=== PATIENT | female | born 1955 | race Caucasian/White ===

== ENCOUNTER 2017-11-19 06:27 | Inpatient (IN) | payer OTHER ==
--- NOTE | 2017-11-19 06:55 | PDOC ---
History of Present Illness - General Chief Complaint: Shortness of Breath Stated Complaint: SHORTNESS OF BREATH Time Seen by Provider: 11/19/17 06:53 - History of Present Illness Initial Comments: 11/19/17 07:40 The patient is a 62 year old female with a history of anxiety who presents for evaluation of palpitations. The patient notes that she awoke this morning with the sensation of heart palpitations. She notes that she has had similar episodes in the past that she has always attributed to anxiety and usually takes xanax as needed with resolution of her symptoms. However, she states that her symptoms persisted this morning despite xanax prompting her presentation to the ED for further evaluation. She notes that her symptoms have mostly resolved on presentation to the ED and otherwise denies fevers, chills, SOB, chest pain, palpitations, nausea, vomiting, abdominal pain, or changes with urination or bowel movements. Past History - Past Medical History Allergies/Adverse Reactions: Allergies Allergy/AdvReac Type Severity Reaction Status Date / Time Penicillins Allergy Intermediate Swelling Verified 11/19/17 11:25 Home Medications: Ambulatory Orders Alprazolam [Xanax] 0.5 mg PO DAILY 03/01/16 GI Disorders: Yes (acid reflux) Psychiatric Problems: Yes (ANXIETY) - Surgical History Cholecystectomy: Yes - Suicide/Smoking/Psychosocial Hx Smoking Status: No Smoking History: Never smoked Have you smoked in the past 12 months: No Number of Cigarettes Smoked Daily: 0 Information on smoking cessation initiated: No Hx Alcohol Use: No Drug/Substance Use Hx: No Substance Use Type: None Review of Systems - Review of Systems Comments:: 11/19/17 07:44 Constitutional: No fevers, chills, fatigue, malaise HEENT: No Rhinorrhea, nasal congestion, visual changes Cardiovascular: Palpitations. No chest pain, syncope, lightheadedness Respiratory: Cough. No SOB, Hemoptysis, Gastrointestinal: No Abdominal pain, Nausea, Vomiting, Constipation, Diarrhea, Melena Genitourinary: No Dysuria, Frequency, Urgency, Hesitancy, Hematuria, Flank pain Musculoskeletal: No Myalgia, arthralgia Skin: No rashes, itching, bruising, pallor Neurologic: No Headache, Dizziness, Numbness, Weakness, or Tingling Psychiatric: No Hallucinations. No SI or HI *Physical Exam - Vital Signs Last Vital Signs Temp Pulse Resp BP Pulse Ox 98.7 F 63 18 168/94 97 11/19/17 06:41 11/19/17 06:41 11/19/17 06:41 11/19/17 06:41 11/19/17 06:41 - Physical Exam Comments: 11/19/17 07:45 General Appearance: Nourished. No Apparent Distress HEENT: No Pharyngeal Erythema, Tonsillar Exudate, Tonsillar Erythema Neck: No Cervical Lymphadenopathy Respiratory/Chest: Lungs Clear, Normal Breath Sounds. No Crackles, Rales, Rhonchi, Wheezing Cardiovascular: Irregularly Irregular Rhythm, Tachycardic Rate. No Murmur, Gallops, Rubs Gastrointestinal/Abdominal: Normal Bowel Sounds, Soft. No Guarding, Rebound, Tenderness Musculoskeletal: No CVA Tenderness Extremity: Normal Capillary Refill Integumentary: Normal Color, Dry, Warm Neurologic: Fully Oriented, Alert, Normal Mood/Affect, Normal Response, Heart Score/ECG Review #1 ECG reviewed & interpreted by me at: 07:27 (Tachycardic to 127; Irregularly Irregular Rythem; Afib) General ECG Interpretation: Normal Intervals, No acute ischemic changes ED Treatment Course - LABORATORY CBC & Chemistry Diagram: 11/19/17 07:23 11/19/17 07:23 Medical Decision Making - Medical Decision Making 11/19/17 07:46 The patient is a 62 year old female with a history of anxiety who presents for evaluation of palpitations. Differential includes but is not limited to: Arrhythmia, Anxiety, Thyroid Dysfunction, Infectious, Metabolic Derangement. Given the patient's history and physical exam, it appears the patient is in new onset afib per her EKG. We will obtain a cbc, cmp, coags, tsh, troponin, bnp, chest plain film, ua, to evaluate further. We will continue to monitor and reassess while here in the ED. 11/19/17 11:42 CBC, cmp, coags, troponin are unremarkable. TSH is mildly elevated to 3.81. Chest plain film is unremarkable. UA is unremarkable. The patient's heart rate was controlled with 10mg of iv diltiazem and is now in the 90s. We discussed the case with Dr. Bundy with cardiology who recommended an echocardiogram, 30mg PO diltiazem q6h, and heparin drip in the meantime. We discussed the case with the hospitalist team who accepted the patient for admission. *DC/Admit/Observation/Transfer Diagnosis at time of Disposition: Afib Qualifiers: Atrial fibrillation type: unspecified Qualified Code(s): I48.91 - Unspecified atrial fibrillation - Discharge Dispostion Condition at time of disposition: Stable Decision to Admit order: Yes - Referrals - Patient Instructions - Post Discharge Activity
--- NOTE | 2017-11-19 07:10 | PDOC ---
Attending Attestation - Resident Resident Name: Kevin Davison - ED Attending Attestation I have performed the following: I have examined & evaluated the patient, The case was reviewed & discussed with the resident, I agree w/resident's findings & plan, Exceptions are as noted - HPI HPI: 11/19/17 07:09 62y y F hx of anxiety, palpitations presents with complaint of palpitations since this morning. She awoke with palpitations, sob, took her xanax without improvement. Pt notes she tried to cough a few times to break the palpitaitons but was not releived. pt notes she felt this in the past (every few months) but today was more persistent. she denies any fever/chills, sob/da silva, cp, abd pain, diaphoresis, n/v, back pain, neck pain, headache, diarrhea, bpr, melena, lightheadeness. pt notes she has seen cardiology a fe wyears ago for this and had a holter and a echo fred twere normal and they attributed her sx due to anxiety. - Physicial Exam PE: 11/19/17 08:53 GENERAL: The patient is awake, alert, and fully oriented, Nontoxic - in no acute distress. HEAD: Normocephalic, atraumatic. EYES: extraocular movements intact, sclera anicteric, conjunctiva clear. ENT: Normal voice, Moist mucous membranes. NECK: Normal range of motion, supple LUNGS: Breath sounds equal, clear to auscultation bilaterally. No wheezes, no rhonchi, no rales. HEART: tachycardic, irregular ABDOMEN: Soft, nontender, No guarding, no rebound. . No CVA tenderness EXTREMITIES: Normal range of motion, no edema. No clubbing or cyanosis. No cords, erythema, or tenderness. NEUROLOGICAL: No facial assymetry, Normal speech, PSYCH: Normal mood, normal affect. SKIN: Warm, Dry, normal turgor, - Critical Care Time Total Critical Care Time: 40 Critical Care Statement: The care of this patient involved high complexity decision making to prevent further life threatening deterioration of the patient 's condition and/or to evaluate & treat vital organ system(s) failure or risk of failure. - Medical Decision Making 11/19/17 08:54 62-year-old female history of anxiety presenting with intermittent palpitations that any other symptoms. On arrival she is noted be tachycardic slightly irregular, she is consistently atrial fibrillation. 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 Irregularly irregular Rate of 127 Impression: atrial fibrillation with rapid ventricular response
[2017-11-19 07:57] LABS: BASO % 0.8 % (0-2.0); EOS % 5.2 % (0-4.5); HEMATOCRIT 39.7 % (32.4-45.2); HEMOGLOBIN 13.4 GM/dL (10.7-15.3); LYMPH % 40.2 % (8-40); MCHC 33.8 g/dl (32.0-36.0); MEAN CELL VOLUME 88.8 fl (80-96); MEAN PLT VOLUME 8.3 fl (7.5-11.1); MONO % 7.2 % (3.8-10.2); NEUT % 46.6 % (42.8-82.8); PLATELET COUNT 244 K/MM3 (134-434); RBC 4.47 M/mm3 (3.60-5.2); RDW 14.1 % (11.6-15.6); WHITE BLOOD COUNT 6.1 K/mm3 (4.0-10.0)
[2017-11-19] MEDS ORDERED: ALPRAZolam 0.25 MG TABLET PO ONE (08:00)
[2017-11-19] MEDS ORDERED: ALPRAZolam 0.25 MG TABLET ONE ×2 (08:06→20:15)
[2017-11-19 08:10] LABS: INR 0.96 (0.83-1.09); PROTHROMBIN TIME (PATIENT) 10.8 SEC (9.7-13.0)
[2017-11-19] MEDS ORDERED: dilTIAZem HCL 50 MG/10 ML - 10 ML VIAL IVPUSH ONE (08:29)
--- NOTE | 2017-11-19 08:30 | EKG ---
Test Reason : Blood Pressure : / mmHG Vent. Rate : 127 BPM Atrial Rate : 138 BPM P-R Int : 000 ms QRS Dur : 088 ms QT Int : 280 ms P-R-T Axes : 000 041 040 degrees QTc Int : 406 ms ATRIAL FIBRILLATION NONSPECIFIC ST AND T WAVE ABNORMALITY ABNORMAL ECG Confirmed by RENETTA WASHINGTON MD ([id number]) on 11/19/2017 8:30:02 AM Referred By: Confirmed By:RENETTA WASHINGTON MD
[2017-11-19] MEDS ORDERED: dilTIAZem HCL 50 MG/10 ML - 10 ML VIAL ONE (08:31)
[2017-11-19 08:42] LABS: URINE APPEARANCE CLEAR; URINE BILIRUBIN NEGATIVE (<2.0 mg/dL); URINE COLOR COLORLESS; URINE GLUCOSE (UA) NEGATIVE (NEGATIVE); URINE KETONE NEGATIVE (NEGATIVE); URINE LEUK ESTERASE NEGATIVE (NEGATIVE); URINE NITRITE NEGATIVE (NEGATIVE); URINE PROTEIN NEGATIVE (NEGATIVE); URINE UROBILINOGEN NEGATIVE mg/dL (0.2-1.0)
[2017-11-19 08:43] LABS: ALBUMIN 3.4 g/dl (3.4-5.0); ANION GAP 11 (8-16); BLOOD UREA NITROGEN 11 mg/dL (7-18); CALCIUM 9.2 mg/dL (8.5-10.1); CHLORIDE 109 mmol/L (98-107); CO2 25 mmol/L (21-32); GLUCOSE,RANDOM 135 mg/dL (74-106); SODIUM 145 mmol/L (136-145)
[2017-11-19 08:55] LABS: ALK PHOS 109 U/L (45-117); BILIRUBIN,TOTAL 0.3 mg/dL (0.2-1.0); CREATININE 0.8 mg/dL (0.55-1.02); N-TERMINAL BNP 231.08 pg/ml (5-125); SGPT/ALT 25 U/L (12-78); TOT PROT 7.4 g/dl (6.4-8.2)
[2017-11-19 09:15] LABS: POTASSIUM 4.5 mmol/L (3.5-5.1); SGOT/AST 24 U/L (15-37)
[2017-11-19] MEDS ORDERED: dilTIAZem HCL 30 MG TABLET (FP) PO ONE (09:37)
[2017-11-19] MEDS ORDERED: HEPARIN NA (PORCINE) 5,000 UNITS/ML 1ML VIAL IVPUSH PRN ×2 (09:38)
[2017-11-19] MEDS ORDERED: HEPARIN INFUSION - 25,000 UNITS/500 ML INFUS.BAG IVPB ONE (09:49)
[2017-11-19] MEDS ORDERED: dilTIAZem HCL 30 MG TABLET (FP) ONE ×2 (09:49→16:33)
[2017-11-19] MEDS: HEPARIN - 25,000 UNIT in SODIUM CHLORIDE 495 ML IV SCH ×2 (09:58→22:59)
--- NOTE | 2017-11-19 10:36 | HP ---
CHIEF COMPLAINT: SOB PCP: Dr. Gonsalves ENT: Dr. Blood HISTORY OF PRESENT ILLNESS: 62 yr old woman with hx of anxiety, HLD, OA presents with shortness of breath since this morning. She woke up with palpitations, uncontrollable cough leading to SOB around 530AM this morning. She drove herself to the hospital. The palpitations and cough lasted until she came to the hospital. slept well last night, as been in her usual state of health without any complaints until morning. independent in her ADLs, takes care of her grandchildren, is active without any restrictions. denies chest pain, fevers, abdominal pain, diarrhea/constipation, exertional dyspnea, sick contacts had a similar episode of palpitations 2 yrs ago, work-up including echo and outpatient holtor monitor at that time did not reveal any cardiac pathology and she was told the palpitations were due to her anxiety. Last A1c as outpatient in 03/28/2016 was 6.4% no previous diagnosis of HTN, DM. had a recent physical at PCP's office, EKG was NSR. ER course was notable for: (1) heparin drip (2)cardiology consult (3) Recent Travel: none PAST MEDICAL HISTORY: anxiety, HLD, OA, GERD, chronic knee and neck pain PAST SURGICAL HISTORY: cholecystectomy and in 1974 Social History: Smoking: denies Alcohol:denies Drugs: denies Family History: Denies family hx of cancer, HTN, DM, early DE/CVA's, cardiac conditions. Allergies penicilli allergy - says her tongue and face swells, last use in 1970's. Tolerates zithromax for frequent sinus infections HOME MEDICATIONS: Home Medications Medication Instructions Recorded Alprazolam [Xanax] 0.5 mg PO DAILY 03/01/16 REVIEW OF SYSTEMS CONSTITUTIONAL: Present: intentional weight loss in the last 1 month Absent: fever, chills, diaphoresis, generalized weakness, malaise, loss of appetite HEENT: Absent: rhinorrhea, nasal congestion, throat pain, throat swelling, difficulty swallowing, mouth swelling, ear pain, eye pain, visual changes CARDIOVASCULAR: Present: palpitations, irregular heart rate, Absent: chest pain, syncope, lightheadedness, peripheral edema RESPIRATORY: Present: cough, shortness of breath, Absent: dyspnea with exertion, orthopnea, wheezing, stridor, hemoptysis GASTROINTESTINAL: Absent: abdominal pain, abdominal distension, nausea, vomiting, diarrhea, constipation, melena, hematochezia GENITOURINARY: Absent: dysuria, frequency, urgency, hesitancy, hematuria, flank pain MUSCULOSKELETAL: Absent: myalgia, arthralgia, joint swelling, back pain, neck pain SKIN: Absent: rash, itching, pallor HEMATOLOGIC/IMMUNOLOGIC: Absent: easy bleeding, easy bruising, lymphadenopathy, frequent infections ENDOCRINE: Absent: unexplained weight gain, unexplained weight loss, heat intolerance, cold intolerance NEUROLOGIC: Absent: headache, focal weakness or paresthesias, dizziness, unsteady gait, mental status changes, bladder or bowel incontinence PSYCHIATRIC: Present: anxiety, Absent: depression, suicidal or homicidal ideation, hallucinations. PHYSICAL EXAMINATION Vital Signs - 24 hr 11/19/17 11/19/17 06:41 08:35 Temperature 98.7 F Pulse Rate 63 Pulse Rate [ 124 H Left] Respiratory 18 Rate Blood Pressure 168/94 Blood Pressure 150/89 [Right Arm] O2 Sat by Pulse 97 Oximetry (%) GENERAL: Awake, alert, and fully oriented, in no acute distress. HEAD: Normal with no signs of trauma. EYES: Pupils equal, round and reactive to light, extraocular movements intact, sclera anicteric, conjunctiva clear. No lid lag. EARS, NOSE, THROAT: oropharynx clear without exudates. Moist mucous membranes. NECK: Normal range of motion, supple without lymphadenopathy, JVD, or masses. LUNGS: Breath sounds equal, clear to auscultation bilaterally. No wheezes, and no crackles. No accessory muscle use. HEART: irregularily irregular rhythm, normal rate, normal S1 and S2 without murmur, rub or gallop. ABDOMEN: obese, Soft, nontender, not distended, normoactive bowel sounds, no guarding, no rebound, no masses. well healed vertical scar below umbilicus and [id number] vertical scar. MUSCULOSKELETAL: Normal range of motion at all joints. No bony deformities or tenderness. No CVA tenderness. chronic lumbar spinal pain, ttp - skin intact no erythema, no tingling/numbness down leg. UPPER EXTREMITIES: 2+ radial pulses, warm, well-perfused. No cyanosis. No clubbing. No peripheral edema. 5/5 handgrip, biceps/triceps and shoulder extension and flexion. LOWER EXTREMITIES: 2+ pulses, warm, well-perfused. No calf tenderness. 1+ pitting edema from ankle to knee. 5/5 dorsi and plantar flexion, knee and hip extension and flexion. NEUROLOGICAL: Cranial nerves II-XII intact. Normal speech. facial symmetry. PSYCHIATRIC: Cooperative. Good eye contact. Appropriate mood and affect. SKIN: Warm, dry, normal turgor, no rashes or lesions noted, normal capillary refill. Laboratory Results - last 24 hr 11/19/17 11/19/17 11/19/17 07:23 07:23 07:23 WBC 6.1 RBC 4.47 Hgb 13.4 Hct 39.7 MCV 88.8 MCH 30.0 MCHC 33.8 RDW 14.1 Plt Count 244 MPV 8.3 Absolute Neuts (auto) 2.9 Neutrophils % 46.6 D Lymphocytes % 40.2 H D Monocytes % 7.2 Eosinophils % 5.2 H Basophils % 0.8 Nucleated RBC % 0 PT with INR INR Sodium 145 Potassium 4.5 Chloride 109 H Carbon Dioxide 25 Anion Gap 11 BUN 11 Creatinine 0.8 Creat Clearance w eGFR > 60 Random Glucose 135 H Calcium 9.2 Total Bilirubin 0.3 AST 24 ALT 25 Alkaline Phosphatase 109 Troponin I < 0.02 B-Natriuretic Peptide 231.08 H Total Protein 7.4 Albumin 3.4 TSH 3.81 H Urine Color Colorless Urine Appearance Clear Urine pH 7.0 D Ur Specific [place] 1.003 Urine Protein Negative Urine Glucose (UA) Negative Urine Ketones Negative Urine Blood Negative Urine Nitrite Negative Urine Bilirubin Negative Urine Urobilinogen Negative Ur Leukocyte Esterase Negative 11/19/17 11/19/17 11/19/17 07:23 07:23 07:23 WBC RBC Hgb Hct MCV MCH MCHC RDW Plt Count MPV Absolute Neuts (auto) Neutrophils % Lymphocytes % Monocytes % Eosinophils % Basophils % Nucleated RBC % PT with INR 10.80 INR 0.96 Sodium Potassium Chloride Carbon Dioxide Anion Gap BUN Creatinine Creat Clearance w eGFR Random Glucose Calcium Total Bilirubin AST ALT Alkaline Phosphatase Troponin I B-Natriuretic Peptide Cancelled Total Protein Albumin TSH Cancelled Urine Color Urine Appearance Urine pH Ur Specific [place] Urine Protein Urine Glucose (UA) Urine Ketones Urine Blood Urine Nitrite Urine Bilirubin Urine Urobilinogen Ur Leukocyte Esterase ASSESSMENT/PLAN: 62 yr old woman with anxiety, HLD, OA, GERD presents for sob found to have atrial fibrillation admitted to telemetry for further evaluation. New onset Afib - may now be in persistent afib - echo, cardiology consult Dr. Bundy - placed on heparin drip for anticoagulation, CHADSVasc 2, pending lipid panel to risk stratify, last A1c was 03/25/2016 of 6.4%, current A1C 5.7% - started on cardizem po 30mg q6hr #Anxiety - continue home medication, xanax 0.5mg prn #elevated TSH, normal T4, possible subclinical hypothyroidism, may have contributed to Afib, recommend repeat levels as outpatient #Diet: low sodium diet #DVT - on heparin drip # activity: as tolerated Visit type - Emergency Visit Emergency Visit: Yes ED Registration Date: 11/19/17 Care time: The patient presented to the Emergency Department on the above date and was hospitalized for further evaluation of their emergent condition. - New Patient This patient is new to me today: Yes Date on this admission: 11/19/17 - Critical Care Critical Care patient: No Hospitalist Screening - Colonoscopy Questionnaire Colonoscopy Questionnaire: Colonoscopy Questionnaire - Patient: 50 - 75 years old and never had a screening colonoscopy: Unknown History of colon or rectal polyps, or CA: Unknown History of IBD, Crohn's disease or UC: Unknown History of abdominal radiation therapy as a child: Unknown - Relative: 1 with colon or rectal CA, or polyps at age 60 or younger: Unknown Colon or rectal CA diagnosed at age 45 or younger: Unknown Multiple relatives with colon or rectal CA: Unknown - Outcome: Screening Result: Negative Screen
[2017-11-19 12:02] LABS: MAGNESIUM 1.8 mg/dL (1.8-2.4)
--- NOTE | 2017-11-19 12:12 | ECHO ---
Name: BRIAN FITZPATRICK Exam:Adult Echocardiogram Study Date: 11/19/2017 11:05 AM Age: 62 yrs Reason For Study: A-Fib Height: 64 in Weight: 254 lb BSA: 2.2 m2 MMode/2D Measurements & Calculations IVSd: 1.3 cm Ao root diam: 2.5 cm LVIDd: 3.7 cm LA dimension: 3.7 cm LVIDs: 2.1 cm LVPWd: 1.1 cm EDV(Teich): 57.5 ml ESV(Teich): 14.5 ml Doppler Measurements & Calculations MV E max andrew: 99.0 cm/sec Med Peak E' Andrew: 10.7 cm/sec MV A max andrew: 63.1 cm/sec Med E/e': 9.3 MV E/A: 1.6 Lat Peak E' Andrew: 12.4 cm/sec MV dec time: 0.38 sec Lat E/e': 8.0 Procedure The study was technically limited with all images being suboptimal in quality. Left Ventricle Left ventricular systolic function is grossly normal. Regional wall motion abnormalities cannot be ex cluded due to limited visualization. Right Ventricle The right ventricle is grossly normal size. The right ventricular systolic function is grossly normal . Atria Normal left and right atrial size and function. Mitral Valve The mitral valve is grossly normal. There is no mitral valve stenosis. There is mild mitral regurgita tion. Tricuspid Valve The tricuspid valve is normal in structure and function. There is mild tricuspid regurgitation. Aortic Valve There is mild aortic sclerosis.;. No hemodynamically significant valvular aortic stenosis. No aortic regurgitation is present. Pulmonic Valve The pulmonic valve is not well seen, but is grossly normal. There is no pulmonic valvular stenosis. T here is no pulmonic valvular regurgitation. Great Vessels The aortic root is normal size. Pericardium/Pleura There is no pericardial effusion. Interpretation Summary The study was technically limited with all images being suboptimal in quality. Regional wall motion abnormalities cannot be excluded due to limited visualization. Left ventricular systolic function is grossly normal. There is mild mitral regurgitation. There is mild tricuspid regurgitation. There is mild aortic sclerosis.; There is no pericardial effusion. MD Noel Henderson 11/19/2017 12:11 PM
[2017-11-19] MEDS: dilTIAZem HCL 30 MG TABLET (FP) PO SCH ×2 (16:59→23:41)
[2017-11-19] MEDS ORDERED: HEPARIN NA (PORCINE) 5,000 UNITS/ML 1ML VIAL ONE (17:59)
[2017-11-19] MEDS ORDERED: dilTIAZem HCL 30 MG TABLET (FP) PO SCH (18:00)
--- NOTE | 2017-11-19 19:25 | PN ---
Teaching Attending Note Name of Resident: Ioana Parra ATTENDING PHYSICIAN STATEMENT I saw and evaluated the patient. I reviewed the resident's note and discussed the case with the resident. I agree with the resident's findings and plan as documented. SUBJECTIVE: Patient is a 62 yr old woman with hx of anxiety, HLD, OA presents with shortness of breath. c/o having palpitations and cough lasted until she came to the hospital. OBJECTIVE: Vital Signs Temperature 98.1 F 11/19/17 17:48 Pulse Rate 72 11/19/17 17:48 Respiratory Rate 20 11/19/17 17:48 Blood Pressure 121/63 11/19/17 17:48 O2 Sat by Pulse Oximetry (%) 99 11/19/17 17:48 CBCD WBC 6.1 K/mm3 (4.0-10.0) 11/19/17 07:23 RBC 4.47 M/mm3 (3.60-5.2) 11/19/17 07:23 Hgb 13.4 GM/dL (10.7-15.3) 11/19/17 07:23 Hct 39.7 % (32.4-45.2) 11/19/17 07:23 MCV 88.8 fl (80-96) 11/19/17 07:23 MCHC 33.8 g/dl (32.0-36.0) 11/19/17 07:23 RDW 14.1 % (11.6-15.6) 11/19/17 07:23 Plt Count 244 K/MM3 (134-434) 11/19/17 07:23 MPV 8.3 fl (7.5-11.1) 11/19/17 07:23 CMP Sodium 145 mmol/L (136-145) 11/19/17 07:23 Potassium 4.5 mmol/L (3.5-5.1) 11/19/17 07:23 Chloride 109 mmol/L (98-107) H 11/19/17 07:23 Carbon Dioxide 25 mmol/L (21-32) 11/19/17 07:23 Anion Gap 11 (8-16) 11/19/17 07:23 BUN 11 mg/dL (7-18) 11/19/17 07:23 Creatinine 0.8 mg/dL (0.55-1.02) 11/19/17 07:23 Creat Clearance w eGFR > 60 (>60) 11/19/17 07:23 Random Glucose 135 mg/dL (74-106) H 11/19/17 07:23 Calcium 9.2 mg/dL (8.5-10.1) 11/19/17 07:23 Total Bilirubin 0.3 mg/dL (0.2-1.0) 11/19/17 07:23 AST 24 U/L (15-37) 11/19/17 07:23 ALT 25 U/L (12-78) 11/19/17 07:23 Alkaline Phosphatase 109 U/L (45-117) 11/19/17 07:23 Total Protein 7.4 g/dl (6.4-8.2) 11/19/17 07:23 Albumin 3.4 g/dl (3.4-5.0) 11/19/17 07:23 CARDIAC ENZYMES Creatine Kinase 90 IU/L (26-192) 11/19/17 07:23 Troponin I < 0.02 ng/ml (0.00-0.05) 11/19/17 13:00 Current Medications Generic Name Dose Route Start Last Admin Trade Name Freq PRN Reason Stop Dose Admin Diltiazem HCl 30 mg 11/19/17 16:00 11/19/17 16:59 Cardizem - PO 30 mg Q6HPO ALBERTO Administration Heparin Sodium (Porcine) 1,000 unit 11/19/17 09:38 Heparin - IVPUSH PRN PRN Heparin Heparin Sodium (Porcine) 5,000 unit 11/19/17 09:38 Heparin - IVPUSH PRN PRN Heparin Heparin Sodium (Porcine) 25, 500 mls @ 20 mls/hr 11/19/17 09:45 11/19/17 17: 58 000 unit/ Sodium Chloride IV 1,150 unit/hr TITR ALBERTO 23 mls/hr Titration Protocol 1,000 UNIT/HR Home Medications Medication Instructions Recorded Alprazolam [Xanax] 0.5 mg PO DAILY 03/01/16 PE: comfortable with no acute distress NECK: Normal range of motion, supple without lymphadenopathy, JVD, or masses. LUNGS: Breath sounds equal, clear to auscultation bilaterally. No wheezes, and no crackles. No accessory muscle use. HEART: irregularily irregular rhythm, normal rate, normal S1 and S2 without murmur, rub or gallop. ABDOMEN: obese, Soft, nontender, not distended, normoactive bowel sounds. ASSESSMENT AND PLAN: Patient is 62 yr old woman with hx of anxiety, HLD, OA presents to ED. for having palpitations. Patient had 2 cups of coffee this morning ; one at 3am and the other one cup at 5am. felt the palpitations afterward. the drove herself to the hospital. # Afib with RVR on cardizem po and heparin drip , cardio consult for consult. CE q6 x2., TSH ,FT4 level. # Anxiety disorder Xanax prn daily if needed. DVT Px: heparin
[2017-11-19] MEDS: ALPRAZolam 0.25 MG TABLET PO PRN (20:16)
[2017-11-19 23:39] VITALS: BMI 42.9
[2017-11-20] MEDS: dilTIAZem HCL 30 MG TABLET (FP) PO SCH ×2 (05:49→11:07)
[2017-11-20] MEDS: ALPRAZolam 0.25 MG TABLET PO PRN ×2 (08:34→21:23)
[2017-11-20] MEDS: HEPARIN - 25,000 UNIT in SODIUM CHLORIDE 495 ML IV SCH ×2 (08:35→13:30)
--- NOTE | 2017-11-20 09:32 | PN ---
Progress Note (short form) - Note Progress Note: Comfortable with no acute distress. Vital Signs Temperature 97.9 F 11/20/17 06:11 Pulse Rate 62 11/20/17 06:11 Respiratory Rate 20 11/20/17 06:11 Blood Pressure 128/69 11/20/17 06:11 O2 Sat by Pulse Oximetry (%) 99 11/19/17 21:35 PE: comfortable with no acute distress NECK: Normal range of motion, supple without lymphadenopathy, JVD, or masses. LUNGS: Breath sounds equal, clear to auscultation bilaterally. No wheezes, and no crackles. No accessory muscle use. HEART: irregularily irregular rhythm, normal rate, normal S1 and S2 without murmur, rub or gallop. ABDOMEN: obese, Soft, nontender, not distended, normoactive bowel sounds. CBCD WBC 6.1 K/mm3 (4.0-10.0) 11/19/17 07:23 RBC 4.47 M/mm3 (3.60-5.2) 11/19/17 07:23 Hgb 13.4 GM/dL (10.7-15.3) 11/19/17 07:23 Hct 39.7 % (32.4-45.2) 11/19/17 07:23 MCV 88.8 fl (80-96) 11/19/17 07:23 MCHC 33.8 g/dl (32.0-36.0) 11/19/17 07:23 RDW 14.1 % (11.6-15.6) 11/19/17 07:23 Plt Count 244 K/MM3 (134-434) 11/19/17 07:23 MPV 8.3 fl (7.5-11.1) 11/19/17 07:23 CMP Sodium 145 mmol/L (136-145) 11/19/17 07:23 Potassium 4.5 mmol/L (3.5-5.1) 11/19/17 07:23 Chloride 109 mmol/L (98-107) H 11/19/17 07:23 Carbon Dioxide 25 mmol/L (21-32) 11/19/17 07:23 Anion Gap 11 (8-16) 11/19/17 07:23 BUN 11 mg/dL (7-18) 11/19/17 07:23 Creatinine 0.8 mg/dL (0.55-1.02) 11/19/17 07:23 Creat Clearance w eGFR > 60 (>60) 11/19/17 07:23 Random Glucose 135 mg/dL (74-106) H 11/19/17 07:23 Calcium 9.2 mg/dL (8.5-10.1) 11/19/17 07:23 Total Bilirubin 0.3 mg/dL (0.2-1.0) 11/19/17 07:23 AST 24 U/L (15-37) 11/19/17 07:23 ALT 25 U/L (12-78) 11/19/17 07:23 Alkaline Phosphatase 109 U/L (45-117) 11/19/17 07:23 Total Protein 7.4 g/dl (6.4-8.2) 11/19/17 07:23 Albumin 3.4 g/dl (3.4-5.0) 11/19/17 07:23 CARDIAC ENZYMES Creatine Kinase 90 IU/L (26-192) 11/19/17 07:23 Troponin I < 0.02 ng/ml (0.00-0.05) 11/19/17 13:00 Current Medications Generic Name Dose Route Start Last Admin Trade Name Freq PRN Reason Stop Dose Admin Alprazolam 0.5 mg 11/19/17 19:59 11/20/17 08:34 Xanax - PO 0.5 mg Q12H PRN Administration ANXIETY Diltiazem HCl 30 mg 11/19/17 16:00 11/20/17 05:49 Cardizem - PO 30 mg Q6HPO ALBERTO Administration Heparin Sodium (Porcine) 1,000 unit 11/19/17 09:38 11/19/17 22:58 Heparin - IVPUSH 1,000 unit PRN PRN Administration Heparin Heparin Sodium (Porcine) 5,000 unit 11/19/17 09:38 Heparin - IVPUSH PRN PRN Heparin Heparin Sodium (Porcine) 25, 500 mls @ 20 mls/hr 11/19/17 09:45 11/20/17 08: 35 000 unit/ Sodium Chloride IV 1,250 unit/hr TITR ALBERTO 25 mls/hr Administration Protocol 1,000 UNIT/HR Home Medications Medication Instructions Recorded Alprazolam [Xanax] 0.5 mg PO DAILY 03/01/16 A/p: Patient is 62 yr old woman with hx of anxiety, HLD, OA presents to ED. for having palpitations. # Afib RATE IS CONTROLLED NOW ON cardizem and Xarelto started tonight as per cardio. WILL MONITOR , # Anxiety disorder Xanax prn daily if needed. DVT Px: heparin dc in am if stable Visit type - Emergency Visit Emergency Visit: Yes ED Registration Date: 11/19/17 Care time: The patient presented to the Emergency Department on the above date and was hospitalized for further evaluation of their emergent condition. - New Patient This patient is new to me today: No - Critical Care Critical Care patient: No - Discharge Referral Referred to [facility] Med P.C.: No
--- NOTE | 2017-11-20 10:25 | EKG ---
Test Reason : Blood Pressure : / mmHG Vent. Rate : 063 BPM Atrial Rate : 063 BPM P-R Int : 180 ms QRS Dur : 092 ms QT Int : 430 ms P-R-T Axes : 034 027 057 degrees QTc Int : 440 ms NORMAL SINUS RHYTHM NORMAL ECG WHEN COMPARED WITH ECG OF 19-NOV-2017 06:48, SINUS RHYTHM HAS REPLACED JUNCTIONAL RHYTHM VENT. RATE HAS DECREASED BY 64 BPM NON-SPECIFIC CHANGE IN ST SEGMENT IN INFERIOR LEADS NONSPECIFIC T WAVE ABNORMALITY NO LONGER EVIDENT IN INFERIOR LEADS Confirmed by TORIE HOLLAND MD ([id number]) on 11/20/2017 10:25:30 AM Referred By: Confirmed By:TORIE HOLLAND MD
--- NOTE | 2017-11-20 12:34 | CON.CARD ---
Consult Consult Specialty:: cardiology Reason for Consultation:: new-onset AF - History of Present Illness History of Present Illness: The patient is a 62 year old white female with a history of anxiety, obesity, who presents for evaluation of palpitations. The patient notes that she awoke this morning with the sensation of heart palpitations. She notes that she has had similar episodes in the past that she has always attributed to anxiety and usually takes xanax as needed with resolution of her symptoms. However, she states that her symptoms persisted this morning despite xanax prompting her presentation to the ED for further evaluation. She notes that her symptoms have mostly resolved on presentation to the ED and otherwise denies fevers, chills, SOB, chest pain, palpitations, nausea, vomiting, abdominal pain, or changes with urination or bowel movements. Pt says she was on atenolol + warfarin 40 yrs ago for "palpitations". She was also on an antihypertensive 2 years ago. She has lost over 50 lbs (was 293 lbs) since February, by eatin much less ( "now only salsds"). - History Source History Provided By: Patient, Medical Record Limitations to Obtaining History: No Limitations - Alcohol/Substance Use Hx Alcohol Use: No - Smoking History Smoking history: Never smoked Have you smoked in the past 12 months: No Aproximately how many cigarettes per day: 0 Home Medications - Allergies Allergies/Adverse Reactions: Allergies Allergy/AdvReac Type Severity Reaction Status Date / Time Penicillins Allergy Intermediate Swelling Verified 11/19/17 11:25 - Home Medications Home Medications: Ambulatory Orders Alprazolam [Xanax] 0.5 mg PO DAILY 03/01/16 Family Disease History - Family Disease History Family History: Denies Review of Systems - Review of Systems Constitutional: reports: No Symptoms Eyes: reports: No Symptoms HENT: reports: No Symptoms Neck: reports: No Symptoms Cardiovascular: reports: Palpitations Respiratory: reports: No Symptoms Gastrointestinal: reports: No Symptoms Genitourinary: reports: No Symptoms Breasts: reports: No Symptoms Reported Musculoskeletal: reports: No Symptoms Integumentary: reports: No Symptoms Neurological: reports: No Symptoms Endocrine: reports: No Symptoms Hematology/Lymphatic: reports: No Symptoms Psychiatric: reports: Anxiety - Risk Factors Known Risk Factors: Yes: Age, Other (obesity) Vital Signs: Vital Signs Temperature 97.9 F 11/20/17 06:11 Pulse Rate 62 11/20/17 06:11 Respiratory Rate 20 11/20/17 06:11 Blood Pressure 128/69 11/20/17 06:11 O2 Sat by Pulse Oximetry (%) 99 11/19/17 21:35 - Other Data Labs, Other Data: CBC, BMP 11/19/17 07:23 11/19/17 07:23 INR, PTT INR 0.96 (0.83-1.09) 11/19/17 07:23 Troponin, BNP 11/19/17 13:00 Troponin I < 0.02 Troponin, BNP 11/19/17 13:00 Troponin I < 0.02
[2017-11-20] MEDS: RIVAROXABAN 20 MG TABLET PO SCH (15:30)
--- NOTE | 2017-11-21 04:00 | PN ---
Physical Exam: SUBJECTIVE: Patient seen and examined OBJECTIVE: Vital Signs Period Temp Pulse Resp BP Sys/Gordon Pulse Ox Last 24 Hr 97.8 F-98.3 F 61-69 18-20 117-131/58-77 98-98 GENERAL: The patient is awake, alert, and fully oriented, in no acute distress. HEAD: Normal with no signs of trauma. EYES: PERRL, extraocular movements intact, sclera anicteric, conjunctiva clear. No ptosis. ENT: Ears normal, nares patent, oropharynx clear without exudates, moist mucous membranes. NECK: Trachea midline, full range of motion, supple. LUNGS: Breath sounds equal, clear to auscultation bilaterally, no wheezes, no crackles, no accessory muscle use. HEART: Regular rate and rhythm, S1, S2 without murmur, rub or gallop. ABDOMEN: Soft, nontender, nondistended, normoactive bowel sounds, no guarding, no rebound, no hepatosplenomegaly, no masses. EXTREMITIES: 2+ pulses, warm, well-perfused, no edema. NEUROLOGICAL: Cranial nerves II through XII grossly intact. Normal speech, gait not observed. PSYCH: Normal mood, normal affect. SKIN: Warm, dry, normal turgor, no rashes or lesions noted Laboratory Results - last 24 hr 11/20/17 11/20/17 11/20/17 06:45 06:45 14:30 PTT (Actin FS) 54.1 H 30.1 Triglycerides 180 H Cholesterol 187 Total LDL Cholesterol 117 H HDL Cholesterol 48 Active Medications Generic Name Dose Route Start Last Admin Trade Name Freq PRN Reason Stop Dose Admin Alprazolam 0.5 mg 11/19/17 19:59 11/20/17 21:23 Xanax - PO 0.5 mg Q12H PRN Administration ANXIETY Diltiazem HCl 120 mg 11/20/17 13:15 11/20/17 14:50 Cardizem Cd - PO 120 mg DAILY ALBERTO Administration Heparin Sodium (Porcine) 1,000 unit 11/19/17 09:38 11/19/17 22:58 Heparin - IVPUSH 1,000 unit PRN PRN Administration Heparin Heparin Sodium (Porcine) 5,000 unit 11/19/17 09:38 Heparin - IVPUSH PRN PRN Heparin Heparin Sodium (Porcine) 25, 500 mls @ 20 mls/hr 11/19/17 09:45 11/20/17 13: 30 000 unit/ Sodium Chloride IV Not Given TITR [facility] Protocol 1,000 UNIT/HR Rivaroxaban 20 mg 11/20/17 15:30 11/20/17 15:30 Xarelto - PO 20 mg DAILY@1800 [facility] Administration ASSESSMENT/PLAN:
[2017-11-21] MEDS: ALPRAZolam 0.25 MG TABLET PO PRN (08:25)
--- NOTE | 2017-11-21 09:11 | PN ---
Progress Note, Physician Chief Complaint: Pt A&Ox3; anxious. If she has even "one extra heart beat", she begins to panic, thinking it will spiral into a fast prolonged arrythmia. History of Present Illness: The patient is a 62 year old white female with a history of anxiety, obesity, who presents for evaluation of palpitations. The patient notes that she awoke this morning with the sensation of heart palpitations. She notes that she has had similar episodes in the past that she has always attributed to anxiety and usually takes xanax as needed with resolution of her symptoms. However, she states that her symptoms persisted this morning despite xanax prompting her presentation to the ED for further evaluation. She notes that her symptoms have mostly resolved on presentation to the ED and otherwise denies fevers, chills, SOB, chest pain, palpitations, nausea, vomiting, abdominal pain, or changes with urination or bowel movements. Pt says she was on atenolol + warfarin 40 yrs ago for "palpitations". She was also on an antihypertensive 2 years ago. She has lost over 50 lbs (was 293 lbs) since February, by eatin much less ( "now only salsds"). - Current Medication List Current Medications: Active Medications Alprazolam (Xanax -) 0.5 mg PO Q12H PRN PRN Reason: ANXIETY Last Admin: 11/21/17 08:25 Dose: 0.5 mg Diltiazem HCl (Cardizem Cd -) 120 mg PO DAILY [facility] Last Admin: 11/20/17 14:50 Dose: 120 mg Heparin Sodium (Porcine) (Heparin -) 1,000 unit IVPUSH PRN PRN PRN Reason: Heparin Last Admin: 11/19/17 22:58 Dose: 1,000 unit Heparin Sodium (Porcine) (Heparin -) 5,000 unit IVPUSH PRN PRN PRN Reason: Heparin Rivaroxaban (Xarelto -) 20 mg PO DAILY@1800 [facility] Last Admin: 11/20/17 15:30 Dose: 20 mg - Objective Vital Signs: Vital Signs Temperature 97.8 F 11/21/17 01:34 Pulse Rate 64 11/21/17 01:34 Respiratory Rate 18 11/21/17 01:34 Blood Pressure 119/58 11/21/17 01:34 O2 Sat by Pulse Oximetry (%) 98 11/20/17 20:32 Labs: CBC, BMP 11/19/17 07:23 11/19/17 07:23 INR, PTT INR 0.96 (0.83-1.09) 11/19/17 07:23 Problem List - Problems (1) Obesity Code(s): E66.9 - OBESITY, UNSPECIFIED (2) Afib Assessment/Plan: Continue present medications. From a cardiac perspective, pt may be followed as outpatient for cardiology issues. Will see her in office for long-term decision on whether anticoagulant is needed , and, if recurrence of AF, if EP evalaution would be in her interest. Code(s): I48.91 - UNSPECIFIED ATRIAL FIBRILLATION Qualifiers: Atrial fibrillation type: unspecified Qualified Code(s): I48.91 - Unspecified atrial fibrillation (3) Panic attack Assessment/Plan: F/u with psychologist; desensitization program may be of benefit. Code(s): F41.0 - PANIC DISORDER [EPISODIC PAROXYSMAL ANXIETY] (4) Hyperlipidemia Assessment/Plan: Elevated triglycderides and LDL. Pt does not want a statin, saying it cramps her muscles. The importance of weight loss, diet modification, and exercise in controlling cholesterol was discususswed. F/u lipids serially; the danger of remaining elevated was also emphasized. Code(s): E78.5 - HYPERLIPIDEMIA, UNSPECIFIED
[2017-11-21 09:50] VITALS: BP 125/66; PULSE 66; TEMP 98.4
--- NOTE | 2017-11-21 10:36 | DS ---
Physical Exam: SUBJECTIVE: Patient seen and examined Patient is a comfortable with no acute distress. OBJECTIVE: Vital Signs Temperature 98.4 F 11/21/17 09:00 Pulse Rate 66 11/21/17 09:00 Respiratory Rate 22 11/21/17 09:00 Blood Pressure 125/66 11/21/17 09:00 O2 Sat by Pulse Oximetry (%) 97 11/21/17 09:00 PHYSICAL EXAM GENERAL: The patient is awake, alert, and fully oriented, in no acute distress. HEAD: Normal with no signs of trauma. EYES: PERRL, extraocular movements intact, sclera anicteric, conjunctiva clear. ENT: Ears normal, oropharynx clear without exudates, moist mucous membranes. NECK: Trachea midline, full range of motion, supple. LUNGS: Breath sounds equal, clear to auscultation bilaterally, no wheezes, no crackles, no accessory muscle use. HEART: Regular rate and rhythm, S1, S2 without murmur, rub or gallop. ABDOMEN: Soft, nontender, nondistended, normoactive bowel sounds, no guarding, no rebound, no hepatosplenomegaly, no masses. EXTREMITIES: 2+ pulses, warm, well-perfused, no edema. NEUROLOGICAL: Cranial nerves II through XII grossly intact. Normal speech, gait not observed. PSYCH: Normal mood, normal affect. SKIN: Warm, dry, normal turgor, no rashes or lesions noted. LABS Laboratory Results - last 24 hr 11/20/17 11/21/17 14:30 05:30 PTT (Actin FS) 30.1 34.9 CBCD WBC 6.1 K/mm3 (4.0-10.0) 11/19/17 07:23 RBC 4.47 M/mm3 (3.60-5.2) 11/19/17 07:23 Hgb 13.4 GM/dL (10.7-15.3) 11/19/17 07:23 Hct 39.7 % (32.4-45.2) 11/19/17 07:23 MCV 88.8 fl (80-96) 11/19/17 07:23 MCHC 33.8 g/dl (32.0-36.0) 11/19/17 07:23 RDW 14.1 % (11.6-15.6) 11/19/17 07:23 Plt Count 244 K/MM3 (134-434) 11/19/17 07:23 MPV 8.3 fl (7.5-11.1) 11/19/17 07:23 CMP Sodium 145 mmol/L (136-145) 11/19/17 07:23 Potassium 4.5 mmol/L (3.5-5.1) 11/19/17 07:23 Chloride 109 mmol/L (98-107) H 11/19/17 07:23 Carbon Dioxide 25 mmol/L (21-32) 11/19/17 07:23 Anion Gap 11 (8-16) 11/19/17 07:23 BUN 11 mg/dL (7-18) 11/19/17 07:23 Creatinine 0.8 mg/dL (0.55-1.02) 11/19/17 07:23 Creat Clearance w eGFR > 60 (>60) 11/19/17 07:23 Random Glucose 135 mg/dL (74-106) H 11/19/17 07:23 Calcium 9.2 mg/dL (8.5-10.1) 11/19/17 07:23 Total Bilirubin 0.3 mg/dL (0.2-1.0) 11/19/17 07:23 AST 24 U/L (15-37) 11/19/17 07:23 ALT 25 U/L (12-78) 11/19/17 07:23 Alkaline Phosphatase 109 U/L (45-117) 11/19/17 07:23 Total Protein 7.4 g/dl (6.4-8.2) 11/19/17 07:23 Albumin 3.4 g/dl (3.4-5.0) 11/19/17 07:23 CARDIAC ENZYMES Creatine Kinase 90 IU/L (26-192) 11/19/17 07:23 Troponin I < 0.02 ng/ml (0.00-0.05) 11/19/17 13:00 Current Medications Generic Name Dose Route Start Last Admin Trade Name Freq PRN Reason Stop Dose Admin Alprazolam 0.5 mg 11/19/17 19:59 11/21/17 08:25 Xanax - PO 0.5 mg Q12H PRN Administration ANXIETY Diltiazem HCl 120 mg 11/20/17 13:15 08/12/18 09:14 Cardizem Cd - PO 120 mg DAILY ALBERTO Administration Rivaroxaban 20 mg 11/20/17 15:30 11/20/17 15:30 Xarelto - PO 20 mg DAILY@1800 ALBERTO Administration Home Medications Medication Instructions Recorded Alprazolam [Xanax] 0.5 mg PO DAILY 03/01/16 Laboratory Tests 11/20/17 06:45 Triglycerides 180 H Cholesterol 187 Total LDL Cholesterol 117 H HOSPITAL COURSE: Date of Admission:11/19/17 Date of Discharge: 11/21/17 Patient is 62 yr old woman with hx of anxiety, HLD, OA presents to ED. for having palpitations. # Afib RATE IS CONTROLLED NOW ON cardizem and Xarelto will continue and will be discharged on xarelto and cardizem. follow with cardio as an outpatient # Anxiety disorder Xanax prn daily if needed. #elevated triglycerides , given lovaza 2gm x1 dose but since patient is in Xarelto will increase the bleeding, so recomended diet and weight loss and add Flax seed to her diet 4gm per weight. weight loss, diet , stay away from CHO , sugar and refined CHO. discharge time 40 minutes , discussed with Minutes to complete discharge: 40 Discharge Summary Reason For Visit: ATRIAL FIBRILLATION Current Active Problems Afib (Acute) Hyperlipidemia (Acute) Obesity (Acute) Condition: Stable - Instructions Referrals: José Miguel Gonsalves MD [Primary Care Provider] - - Home Medications Comprehensive Discharge Medication List: Ambulatory Orders Alprazolam [Xanax] 0.5 mg PO DAILY 03/01/16 This patient is new to me today: No Emergency Visit: Yes ED Registration Date: 11/19/17 Care time: The patient presented to the Emergency Department on the above date and was hospitalized for further evaluation of their emergent condition. Critical Care patient: No - Discharge Referral Referred to [facility] Med P.C.: No
[2017-11-21] MEDS ORDERED: OMEGA-3 ACID ETHYL ESTERS (FATTY-ACIDS) 1 GM CAPSULE (FP) PO SCH (10:45)
[2017-11-21] MEDS: RIVAROXABAN 20 MG TABLET PO SCH (14:03)
== END 2017-11-21 15:20 | disposition home or self-care (01) | DRG 201 ==
LOC: JER 06:27 → JERBED 10:25 → J4W 21:25
PROVIDERS: ADMIT Internal Medicine; ATTEND Internal Medicine
DX: I48.91 Unspecified atrial fibrillation (principal); R00.2 Palpitations; K21.9 Gastro-esophageal reflux disease without esophagitis; F41.0 Panic disorder [episodic paroxysmal anxiety]; E78.5 Hyperlipidemia, unspecified; M19.90 Unspecified osteoarthritis, unspecified site; M25.569 Pain in unspecified knee; M54.2 Cervicalgia; E66.9 Obesity, unspecified; Z68.41 Body mass index [BMI] 40.0-44.9, adult
CPT/HCPCS: 36415; 71045-TC-FY; 80053; 80061; 81003; 82550; 83036; 83721; 83735; 83880; 84100; 84439; 84443; 84484; 85025; 85610; 85730; 93005; 93010; 93306-TC; 99284-25; J1644

== ENCOUNTER 2018-04-30 02:20 | Emergency (ER) | payer OTHER ==
[2018-04-30 02:45] VITALS: BP 146/74; PULSE 90; TEMP 98.9; BMI 34.4
--- NOTE | 2018-04-30 02:45 | PDOC ---
Attending Attestation - Resident Resident Name: Malaika Munoz - ED Attending Attestation I have performed the following: I have examined & evaluated the patient, The case was reviewed & discussed with the resident, I agree w/resident's findings & plan - HPI HPI: 04/30/18 06:31 Pt comes with dark urine and she is worried that she may have a kidney stone, as she is on blood thinners and she wants to make sure that she is not bleeding out. Pt has some back pain, but she admits that she was lifting her grandchildren, as well as packages at home. - Physicial Exam PE: 04/30/18 06:33 Agree with resident exam. Pt has no flank pain. Abd soft and NT ND. - Medical Decision Making 04/30/18 05:49 Patient Name: BRIAN FITZPATRICK THIS IS A PRELIMINARY REPORT FROM [facility] SECURITY OFFICER DATE OF SERVICE: 2018-04-30 04:59:02 IMAGES: 524 EXAM: CT abdomen and pelvis without contrast HISTORY: Concern for nephrolithiasis COMPARISON: None. FINDINGS: Abdomen Liver: Normal Spleen: Normal Pancreas: Normal CONFIDENTIALITY NOTICE: This information is intended only for the use of the recipient(s) named above. If you are not the intended recipient, or a person responsible for delivering it to the intended recipient, you are hereby notified that any disclosure, copying, distribution or use of any of the information contained in or attached to this transmission is STRICTLY PROHIBITED. If you have received this transmission in error, please immediately notify [facility] and destroy the original transmission and its attachments without saving them in any manner [address] [place] [address] [place] [address] Phone: [phone] Fax: Email: [email or web address] Patient Information: : 1955 Order Type: Preliminary Name: AMARI TORRES Sex: F Study Description: CT ABDOMEN AND PELVIS Modality: CT Location: [facility] Referring Physician: WALTER CARNEY Gallbladder: Normal Stomach: Normal Small bowel: Normal Large bowel: Normal Appendix: Normal Adrenals:Normal Kidneys: There is a 3 mm nonobstructing left calyceal renal stone Vascular: Normal Lymphatic: Normal Peritoneal: No free peritoneal air or fluid Pelvis: Uterus: normal Rectum: Normal Bladder: Normal The inferior thorax: Normal General: Skeletal: Normal Abdominal wall: Normal IMPRESSION: Nephrolithiasis
--- NOTE | 2018-04-30 02:55 | PDOC ---
History of Present Illness - General Stated Complaint: BLOOD IN URINE/BACK PAIN Time Seen by Provider: 04/30/18 02:35 History Source: Patient Exam Limitations: No Limitations - History of Present Illness Initial Comments: 04/30/18 02:51 this is a 63 yo F with PMH of AF on xarelto, HTN, anxiety, oa, who presents due to back pain and dark urine. Patient experienced dull R sided flank pain today at 4 pm and noticed tea colored dark urine. back pain was constant and lasted a few hours until resolving spontaneously. She admits to lifting her grand kids and drinking very little water the day before. after drinking several bottles of water, her urine became clear. She denies dysuria, unusual urine odor, cloudy urine, f/c, malaise, abd pain, n/v/d/c, h/a, cp, sob, palpitations. She had a uti 10 yrs ago. She has never had hematuria before. She was ill a week ago with a GI virus (n/v/d) that has since resolved. 04/30/18 02:54 Past History - Past Medical History Allergies/Adverse Reactions: Allergies Allergy/AdvReac Type Severity Reaction Status Date / Time Penicillins Allergy Intermediate Swelling Verified 04/30/18 02:42 Home Medications: Ambulatory Orders Alprazolam [Xanax] 0.5 mg PO DAILY 03/01/16 Diltiazem Cd [Cardizem Cd -] 120 mg PO DAILY #30 cap.cd.24h 11/21/17 Rivaroxaban [Xarelto -] 20 mg PO DAILY@1800 #30 tablet 11/21/17 COPD: No GI Disorders: Yes (acid reflux) HTN: Yes Psychiatric Problems: Yes (ANXIETY) - Surgical History Cholecystectomy: Yes - Immunization History Immunization Up to Date: Yes - Suicide/Smoking/Psychosocial Hx Smoking Status: No Smoking History: Never smoked Have you smoked in the past 12 months: No Number of Cigarettes Smoked Daily: 0 Information on smoking cessation initiated: No Hx Alcohol Use: No Drug/Substance Use Hx: No Substance Use Type: None Review of Systems - Review of Systems Able to Perform ROS?: Yes Is the patient limited Sami proficient: No Constitutional: No: Chills, Fever, Malaise HEENTM: No: Throat Pain Respiratory: No: Cough, Shortness of Breath Cardiac (ROS): No: Chest Pain, Edema, Lightheadedness, Palpitations ABD/GI: No: Abdominal Distended, Blood Streaked Bowels, Constipated, Diarrhea, Nausea, Poor Appetite, Vomiting : Yes: Flank Pain (R side), Hematuria (questionable ). No: Dysuria, Frequency , Incontinence Musculoskeletal: Yes: Back Pain Integumentary: No: Bruising Neurological: No: Headache Psychiatric: Yes: Anxiety. No: Depression *Physical Exam - Vital Signs Last Vital Signs Temp Pulse Resp BP Pulse Ox 98.9 F 90 18 146/74 99 04/30/18 02:42 04/30/18 02:42 04/30/18 02:42 04/30/18 02:42 04/30/18 02:42 - Physical Exam General Appearance: Yes: Nourished, Appropriately Dressed. No: Apparent Distress HEENT: positive: EOMI. negative: Scleral Icterus (R), Scleral Icterus (L) Neck: positive: Trachea midline, Supple. negative: Tender, Rigid Respiratory/Chest: positive: Lungs Clear, Normal Breath Sounds Cardiovascular: positive: Regular Rhythm, Regular Rate, S1, S2 Gastrointestinal/Abdominal: positive: Normal Bowel Sounds, Flat, Soft, Organomegaly. negative: Tender, Pulsatile Mass, Distended Musculoskeletal: negative: CVA Tenderness, CVA Tenderness (R), CVA Tenderness (L ) Integumentary: positive: Dry, Warm Neurologic: positive: health and safety tech II-XII NML intact (grossly), Fully Oriented, Alert Moderate Sedation - Procedure Monitoring Vital Signs: Procedure Monitoring Vital Signs Temperature 98.9 F 04/30/18 02:42 Pulse Rate 90 04/30/18 02:42 Respiratory Rate 18 04/30/18 02:42 Blood Pressure 146/74 04/30/18 02:42 O2 Sat by Pulse Oximetry (%) 99 04/30/18 02:42 ED Treatment Course - LABORATORY CBC & Chemistry Diagram: 04/30/18 03:35 04/30/18 03:35 - ADDITIONAL ORDERS Additional order review: 04/30/18 04:54 UA shows 3+ blood but only 1 rbc, not indicative of hematuria. CK is wnl. creat wnk, no leukocytosis ir evidence of infection. patient may have passes a small nephrolithiasis. will f/u with spiral CT. Giving 1 L NS 04/30/18 05:[address] shows a L 3mm nonobstructive calyceal nephrolithiasis 04/30/18 05:47 04/30/18 05:49 *DC/Admit/Observation/Transfer Diagnosis at time of Disposition: Flank pain, Afib - Discharge Dispostion Disposition: HOME Condition at time of disposition: Good Decision to Admit order: No - Referrals Referrals: José Miguel Gonsalves MD [Primary Care Provider] - - Patient Instructions Additional Instructions: you presented to ED because of left sided back pain and dark urine. we did not see obvious signs of bleeding in your urine, your blood work was normal and a CT scan of your abdomen showed a small 3 mm stone in your left kidney; nothing needs to be done about it at this time. your pain may have been caused by physical strain or possibly by a small kidney stone that already passed. make sure to drink plenty of water and follow with your primary doctor this week. Return to ED of severe symptoms recur. - Post Discharge Activity
[2018-04-30 03:19] LABS: URINE APPEARANCE CLEAR; URINE BILIRUBIN NEGATIVE (<2.0 mg/dL); URINE COLOR COLORLESS; URINE GLUCOSE (UA) NEGATIVE (NEGATIVE); URINE KETONE NEGATIVE (NEGATIVE); URINE LEUK ESTERASE NEGATIVE (NEGATIVE); URINE NITRITE NEGATIVE (NEGATIVE); URINE PROTEIN NEGATIVE (NEGATIVE); URINE UROBILINOGEN NEGATIVE mg/dL (0.2-1.0)
[2018-04-30 03:29] LABS: EPI CELLS RARE /HPF (FEW); URINE BACTERIA RARE /hpf (NONE SEEN)
[2018-04-30] MEDS ORDERED: SODIUM CHLORIDE 0.9% 500 ML INFUS.BAG IV ONE (03:30)
[2018-04-30 04:14] LABS: ALBUMIN 3.6 g/dl (3.4-5.0); ALK PHOS 92 U/L (45-117); ANION GAP 8 MMOL/L (8-16); BILIRUBIN,TOTAL 0.5 mg/dL (0.2-1); BLOOD UREA NITROGEN 14 mg/dL (7-18); CALCIUM 8.8 mg/dL (8.5-10.1); CHLORIDE 107 mmol/L (98-107); CO2 25 mmol/L (21-32); CREATININE 0.7 mg/dL (0.55-1.3); GLUCOSE,RANDOM 141 mg/dL (74-106); POTASSIUM 4.2 mmol/L (3.5-5.1); SGOT/AST 17 U/L (15-37); SGPT/ALT 21 U/L (13-61); SODIUM 140 mmol/L (136-145); TOT PROT 7.6 g/dl (6.4-8.2)
[2018-04-30 04:25] LABS: BASO % 0.8 % (0-2.0); EOS % 3.4 % (0-4.5); HEMATOCRIT 39.6 % (32.4-45.2); HEMOGLOBIN 13.6 GM/dL (10.7-15.3); LYMPH % 27.5 % (8-40); MCH 30.4 pg (25.7-33.7); MCHC 34.3 g/dl (32.0-36.0); MEAN CELL VOLUME 88.6 fl (80-96); MEAN PLT VOLUME 8.5 fl (7.5-11.1); MONO % 7.6 % (3.8-10.2); NEUT % 60.7 % (42.8-82.8); PLATELET COUNT 274 K/MM3 (134-434); RBC 4.47 M/mm3 (3.60-5.2); RDW 14.1 % (11.6-15.6); WHITE BLOOD COUNT 6.6 K/mm3 (4.0-10.0)
== END 2018-04-30 06:01 | disposition home or self-care (01) ==
LOC: JER 02:20
DX: N20.0 Calculus of kidney (principal); I48.91 Unspecified atrial fibrillation; Z79.01 Long term (current) use of anticoagulants; I10 Essential (primary) hypertension; M19.90 Unspecified osteoarthritis, unspecified site; F41.9 Anxiety disorder, unspecified
CPT/HCPCS: 36415; 74176; 80053; 81003; 81015; 82550; 85025; 85651; 86140; 87086; 99284-25

== ENCOUNTER 2018-12-31 23:09 | Emergency (ER) | payer OTHER ==
[2018-12-31 23:30] VITALS: TEMP 98.4; BMI 38.6
--- NOTE | 2018-12-31 23:36 | PDOC ---
Attending Attestation - Resident Resident Name: Quang Garcia - ED Attending Attestation I have performed the following: I have examined & evaluated the patient, The case was reviewed & discussed with the resident, I agree w/resident's findings & plan - HPI HPI: 01/01/19 01:02 Pt comes with feeling of palpitations. Her separator inserter Dr. Bundy told her to go to the ER after hrs as she may have afib. SHe had an apisode of afib at one point. - Physicial Exam PE: 01/01/19 01:03 Agree with resident exam. Normal vitals HR normal. rhythm normal - Medical Decision Making 01/01/19 01:31 CXR normal; EKG NSR; Exam normal; Vitals normal; Pt feels great; d/c home. Consider holter monitor.
--- NOTE | 2019-01-01 00:49 | PDOC ---
History of Present Illness - General Chief Complaint: Palpitations Stated Complaint: PALPITATION Time Seen by Provider: 12/31/18 23:32 - History of Present Illness Initial Comments: 01/01/19 01:31 63F with pmh of anxiety and afib presents with short episodes of palpitation over the pasty 2 days. Now asymptomatic.. Usually takes Xanax every night when she feels anxious, did not do that tonight. She says the feeling is different than when she had a-fib episodes, feels like a thrill. Sprained her ankle earlier today and had to sty in bed all afternoon alone with her won thought which exacerbated her anxiety. Denies chest pain, sob, abdominal pain n/v/d/. Past History - Past Medical History Allergies/Adverse Reactions: Allergies Allergy/AdvReac Type Severity Reaction Status Date / Time Penicillins Allergy Intermediate Swelling Verified 04/30/18 02:42 Home Medications: Ambulatory Orders Alprazolam [Xanax] 0.5 mg PO DAILY 03/01/16 Diltiazem Cd [Cardizem Cd -] 120 mg PO DAILY #30 cap.cd.24h 11/21/17 Rivaroxaban [Xarelto -] 20 mg PO DAILY@1800 #30 tablet 11/21/17 COPD: No GI Disorders: Yes (acid reflux) HTN: Yes Psychiatric Problems: Yes (ANXIETY) - Surgical History Cholecystectomy: Yes - Immunization History Immunization Up to Date: Yes - Suicide/Smoking/Psychosocial Hx Smoking Status: No Smoking History: Never smoked Have you smoked in the past 12 months: No Number of Cigarettes Smoked Daily: 0 Information on smoking cessation initiated: No Hx Alcohol Use: No Drug/Substance Use Hx: No Substance Use Type: None Review of Systems - Review of Systems Able to Perform ROS?: Yes Is the patient limited Romanian proficient: No Constitutional: No: Symptoms Reported HEENTM: No: Symptoms Reported Respiratory: No: Symptoms reported Cardiac (ROS): Yes: See HPI ABD/GI: No: Symptoms Reported : No: Symptoms Reported Musculoskeletal: No: Symptoms Reported Integumentary: No: Symptoms Reported Neurological: No: Symptoms reported Psychiatric: Yes: Anxiety All Other Systems: Reviewed and Negative *Physical Exam - Vital Signs Last Vital Signs Temp Pulse Resp BP Pulse Ox 98.4 F 88 20 155/81 100 12/31/18 23:28 12/31/18 23:28 12/31/18 23:28 12/31/18 23:28 12/31/18 23:28 - Physical Exam General Appearance: Yes: Nourished, Appropriately Dressed. No: Apparent Distress HEENT: positive: EOMI, MORIS, Normal ENT Inspection Respiratory/Chest: positive: Lungs Clear, Normal Breath Sounds. negative: Chest Tender, Respiratory Distress Cardiovascular: positive: Regular Rhythm, Regular Rate, S1, S2 Gastrointestinal/Abdominal: positive: Normal Bowel Sounds, Flat, Soft. negative : Tender Musculoskeletal: positive: Normal Inspection. negative: CVA Tenderness Extremity: positive: Normal Capillary Refill, Normal Inspection, Normal Range of Motion Integumentary: positive: Normal Color, Dry, Warm Neurologic: positive: Fully Oriented, Alert, Normal Mood/Affect, Normal Response , Motor Strength / ED Treatment Course - RADIOLOGY Radiology Studies Ordered: Category Date Time Status CHEST PA & LAT [RAD] Stat Radiology 01/01/19 00:12 Taken Medical Decision Making - Medical Decision Making 01/01/19 01:52 63F with pmh of anxiety and afib presents with short episodes of palpitation over the pasty 2 days. Now asymptomatic. EKG was done during the episode, Normal sinus rhythm, normal ekg, rate: 87, MD 148, QRS: 96, QT/QTC: 374/450 Did not take xanax tonight. Will dc with cardiology follow up with possible holter monitor placement. *DC/Admit/Observation/Transfer Diagnosis at time of Disposition: Palpitations - Discharge Dispostion Disposition: HOME Condition at time of disposition: Improved Decision to Admit order: No - Referrals - Patient Instructions Printed Discharge Instructions: DI for Palpitations Additional Instructions: Follow up with Dr. Bundy in the next 2-3 days to consider Holter monitor placement. Come back to the emergency department for any new, worsening or concerning symptom. - Post Discharge Activity
[2019-01-01 02:22] VITALS: BP 152/83; PULSE 86
--- NOTE | 2019-01-02 07:09 | EKG ---
Test Reason : Blood Pressure : / mmHG Vent. Rate : 087 BPM Atrial Rate : 087 BPM P-R Int : 190 ms QRS Dur : 096 ms QT Int : 374 ms P-R-T Axes : 032 031 042 degrees QTc Int : 450 ms NORMAL SINUS RHYTHM NORMAL ECG WHEN COMPARED WITH ECG OF 20-NOV-2017 09:13, NO SIGNIFICANT CHANGE WAS FOUND Confirmed by SCOTTY MADRIGAL MD ([id number]) on 01/02/2019 7:08:59 AM Referred By: Confirmed By:SCOTTY MADRIGAL MD
== END 2019-01-01 01:53 | disposition home or self-care (01) ==
LOC: JER 23:09
DX: R00.2 Palpitations (principal); I10 Essential (primary) hypertension; F41.9 Anxiety disorder, unspecified; I48.91 Unspecified atrial fibrillation; Z79.01 Long term (current) use of anticoagulants; K21.9 Gastro-esophageal reflux disease without esophagitis
CPT/HCPCS: 71046-TC-FY; 93005; 93010; 99282-25

== ENCOUNTER 2019-01-09 22:08 | Emergency (ER) | payer OTHER ==
--- NOTE | 2019-01-09 22:27 | PDOC ---
History of Present Illness - General Stated Complaint: PALPITATIONS Time Seen by Provider: 01/09/19 22:26 History Source: Patient, Family - History of Present Illness Initial Comments: 01/10/19 00:38 Ms. Mckeon is a 63 y/o woman with hx afib on xarelto, anxiety p/w acute onset palpitations that awoke her from sleep. She reports that the palpitations began approx 30 min before her arrival. She reports that she has had episode of palpitations previously, which often resolved without intervention. She reports that she had been instructed by her primary care provider to take her xanax three times daily, however she reports that she instead takes it when needed. She reports that her palpitations are managed by Dr. Olguin, whom she has an appointment with next Wednesday. She denies any chest pain, shortness of breath, changes in vision, fatigue, weakness. Past History - Past Medical History Allergies/Adverse Reactions: Allergies Allergy/AdvReac Type Severity Reaction Status Date / Time Penicillins Allergy Intermediate Swelling Verified 01/09/19 22:49 Home Medications: Ambulatory Orders Alprazolam [Xanax] 0.5 mg PO DAILY 03/01/16 Diltiazem Cd [Cardizem Cd -] 120 mg PO DAILY #30 cap.cd.24h 11/21/17 Rivaroxaban [Xarelto -] 20 mg PO DAILY@1800 #30 tablet 11/21/17 COPD: No GI Disorders: Yes (acid reflux) HTN: Yes Psychiatric Problems: Yes (ANXIETY) - Surgical History Cholecystectomy: Yes - Immunization History Immunization Up to Date: Yes - Psycho Social/Smoking Cessation Hx Smoking Status: No Smoking History: Never smoked Have you smoked in the past 12 months: No Number of Cigarettes Smoked Daily: 0 Hx Alcohol Use: No Drug/Substance Use Hx: No Substance Use Type: None Review of Systems - Review of Systems Able to Perform ROS?: Yes Comments:: 01/10/19 01:04 ROS: GENERAL/CONSTITUTIONAL: No fever or chills. No weakness. HEAD, EYES, EARS, NOSE AND THROAT: No change in vision. No ear pain or discharge. No sore throat. CARDIOVASCULAR: Palpitations. No chest pain or shortness of breath RESPIRATORY: No cough, wheezing, or hemoptysis. GASTROINTESTINAL: No nausea, vomiting, diarrhea or constipation. GENITOURINARY: No dysuria, frequency, or change in urination. MUSCULOSKELETAL: No joint or muscle swelling or pain. No neck or back pain. SKIN: No rash NEUROLOGIC: No headache, vertigo, loss of consciousness, or change in strength/ sensation. ENDOCRINE: No increased thirst. No abnormal weight change HEMATOLOGIC/LYMPHATIC: No anemia, easy bleeding, or history of blood clots. ALLERGIC/IMMUNOLOGIC: No hives or skin allergy. *Physical Exam - Physical Exam Comments: 01/10/19 01:06 PE: GENERAL: Awake, alert, and fully oriented, in no acute distress HEAD: No signs of trauma, normocephalic, atraumatic EYES: PERRLA, EOMI, sclera anicteric, conjunctiva clear ENT: Auricles normal inspection, hearing grossly normal, nares patent, oropharynx clear without exudates. Moist mucosa NECK: Normal ROM, supple, no lymphadenopathy, JVD, or masses LUNGS: No distress, speaks full sentences, clear to auscultation bilaterally HEART: Regular rate and rhythm, normal S1 and S2, no murmurs, rubs or gallops, peripheral pulses normal and equal bilaterally. ABDOMEN: Soft, nontender, normoactive bowel sounds. No guarding, no rebound. No masses EXTREMITIES : Normal inspection, Normal range of motion, no edema. No clubbing or cyanosis NEUROLOGICAL: Cranial nerves II through XII grossly intact. Normal speech, normal gait, no focal sensorimotor deficits SKIN: Warm, Dry, normal turgor, no rashes or lesions noted Heart Score/ECG Review - History History: Slightly suspicious - Electrocardiogram EKG: Normal - Age Age: 45-65 - Risk Factors Risk Factors Heart Score: Yes Hx Hypercholesterolemia, Yes Hx Hypertension, Yes Hx Diabetes Based on the list above the patient has:: >/=3 risk factors or Hx atherosclerotic disease - Troponin Troponin: </= normal limit - Score Heart Score - Total: 3 - ECG Intrepretation Rhythm: Regular Rhythm - [place]: Normal - ECG Impressions Normal ECG: No Non-specific ST Elevation: No Ischemic Changes: No Bradycardia: No Tachycardia: Sinus Medical Decision Making - Medical Decision Making 01/10/19 01:09 63F with hx afib on xarelto, anxiety p/w palpitations, no chest pain, sinus tachycardia on our ECG as well as EMS ECG. Differential most likely representing period of afib, now resolved. ACS cannot yet be ruled out. Plan: Cardiac Profile Dispo: Likely discharge with cardiology follow up --- Troponin, CK - negative Plan for follow up with hospitalist nocturnist physician, PCP. Return precautions as described in discharge. Discharge - Discharge Information Problems reviewed: Yes Clinical Impression/Diagnosis: Palpitations Condition: Stable Disposition: HOME - Admission No - Follow up/Referral Referrals: José Miguel Gonsalves MD [Primary Care Provider] - - Patient Discharge Instructions Patient Printed Discharge Instructions: DI for Palpitations Additional Instructions: You were seen in the emergency department for palpitations. Your blood work returned normal. Please make sure to follow up with your hospitalist nocturnist physician as soon as possible, within the next seven days. Please return to the emergency department if you develop chest pain, difficulty breathing, experience changes in your vision, become lightheaded, or weak. - Post Discharge Activity
[2019-01-09 22:50] VITALS: BP 158/77; TEMP 98.6; BMI 38.6
[2019-01-09 23:46] VITALS: PULSE 96
--- NOTE | 2019-01-10 01:18 | PDOC ---
Documentation entered by Connie Chance SCRIBE, acting as scribe for Temitope Mcclain MD. Temitope Mcclain MD: This documentation has been prepared by the Meron hillman Brenda, SCRIBE, under my direction and personally reviewed by me in its entirety. I confirm that the documentation accurately reflects all work, treatment, procedures, and medical decision making performed by me. Attending Attestation - Resident Resident Name: Chris Burdick - ED Attending Attestation I have performed the following: I have examined & evaluated the patient, The case was reviewed & discussed with the resident, I agree w/resident's findings & plan, Exceptions are as noted - HPI HPI: 01/09/19 23:15 The patient is an alert and conversant 63 year old female with a significant past medical history of Afib and anxiety who presents to the emergency department reporting an acute onset of palpitations at around 11:00pm on 01/09/19 , which woke her up from her sleep. Patient denies any GI symtpoms and urinary symptoms. Denies fever and chills. Allergies: Penicllins - Physicial Exam PE: 01/10/19 00:[address] Chris Burdick 's physical exam - Medical Decision Making 01/10/19 00:51 negative troponin ekg nsr @ 99 pt has been in normal sinus rhythm during her entire observation period 01/10/19 01:08 she already has an appt w her publishing editor this coming Wednesday
--- NOTE | 2019-01-10 15:35 | EKG ---
Test Reason : Blood Pressure : / mmHG Vent. Rate : 099 BPM Atrial Rate : 099 BPM P-R Int : 182 ms QRS Dur : 090 ms QT Int : 342 ms P-R-T Axes : 027 005 038 degrees QTc Int : 438 ms NORMAL SINUS RHYTHM INFERIOR INFARCT , AGE UNDETERMINED CANNOT RULE OUT ANTERIOR INFARCT , AGE UNDETERMINED ABNORMAL ECG WHEN COMPARED WITH ECG OF 31-DEC-2018 23:28, INFERIOR INFARCT IS NOW PRESENT Confirmed by Padilla Soliz MD ([id number]) on 01/10/2019 3:34:34 PM Referred By: Confirmed By:Padilla Soliz MD
== END 2019-01-10 01:12 | disposition home or self-care (01) ==
LOC: JER 22:08
DX: R00.2 Palpitations (principal); F41.9 Anxiety disorder, unspecified; I48.91 Unspecified atrial fibrillation; Z79.01 Long term (current) use of anticoagulants; I10 Essential (primary) hypertension; K21.9 Gastro-esophageal reflux disease without esophagitis; Z88.0 Allergy status to penicillin
CPT/HCPCS: 36415; 82550; 84484; 93005; 93010; 99283-25

== ENCOUNTER 2019-05-04 12:11 | Emergency (ER) | payer OTHER ==
[2019-05-04 12:17] VITALS: BP 163/66; PULSE 87; TEMP 97.9; BMI 42.9
--- NOTE | 2019-05-04 13:11 | PDOC ---
History of Present Illness - General Chief Complaint: Pain Stated Complaint: PAIN Time Seen by Provider: 05/04/19 12:24 History Source: Patient Exam Limitations: No Limitations - History of Present Illness Initial Comments: 05/04/19 13:10 64-year-old female with history of tennis elbow, carpal tunnel syndrome, arthritis, GERD A. fib on Xarelto reports elbow pain and left shoulder ache yesterday which resolved without intervention. This morning felt left shoulder ache which lasted ROS: GENERAL/CONSTITUTIONAL: No fever, chills, weakness, dizziness HEAD, EYES, EARS, NOSE AND THROAT: No changes in vision, No ear pain or discharge, No sore throat CARDIOVASCULAR: No chest pain RESPIRATORY: No shortness of breath or cough GASTROINTESTINAL: No pain, nausea, vomiting, diarrhea or constipation GENITOURINARY: No dysuria MUSCULOSKELETAL: Left shoulder ache, left elbow pain, no neck or back pain SKIN: No rash NEUROLOGIC: No headache, vertigo, loss of consciousness, or loss of sensation PE: GENERAL: well-appearing, NAD, obese HEAD: NCAT EYES: Pupils equal, round and reactive to light, sclera anicteric, conjunctiva clear ENT: pharynx: no erythema, no exudate, uvula midline NECK: supple CHEST: nontender RESP: clear, no w/r/r CARDIO: rrr, no m/g/r ABD: +BS, soft, nontender, non distended BACK: no midline spinal ttp, no CVAT EXTREMITIES: No tenderness to palpation over left olecranon, full range of motion of left shoulder, normal range of motion, no edema NEUROLOGICAL: Normal speech, normal gait SKIN: Warm, Dry 05/04/19 13:42 Is this a multiple visit Asthma Patient?: No Past History - Past Medical History Allergies/Adverse Reactions: Allergies Allergy/AdvReac Type Severity Reaction Status Date / Time Penicillins Allergy Intermediate Swelling Verified 05/04/19 12:17 Home Medications: Ambulatory Orders Alprazolam [Xanax] 0.5 mg PO DAILY 03/01/16 Diltiazem Cd [Cardizem Cd -] 120 mg PO DAILY #30 cap.cd.24h 11/21/17 Rivaroxaban [Xarelto -] 20 mg PO DAILY@1800 #30 tablet 11/21/17 COPD: No Diabetes: Yes GI Disorders: Yes (acid reflux) HTN: Yes Hypercholesterolemia: Yes Psychiatric Problems: Yes (ANXIETY) - Surgical History Cholecystectomy: Yes - Immunization History Immunization Up to Date: Yes - Psycho Social/Smoking Cessation Hx Smoking Status: No Smoking History: Never smoked Have you smoked in the past 12 months: No Number of Cigarettes Smoked Daily: 0 Information on smoking cessation initiated: No Hx Alcohol Use: No Drug/Substance Use Hx: No Substance Use Type: None *Physical Exam - Vital Signs Last Vital Signs Temp Pulse Resp BP Pulse Ox 97.9 F 87 18 163/66 98 05/04/19 12:14 05/04/19 12:14 05/04/19 12:14 05/04/19 12:14 05/04/19 12:14 Medical Decision Making - Medical Decision Making 05/04/19 13:45 64-year-old female with history of A. fib on Xarelto, tennis elbow, carpal tunnel syndrome, arthritis, anxiety on Xanax was seen by orthopedist this morning for left knee steroid injection. She endorsed to him that yesterday afternoon she had intermittent ache of her left shoulder and left elbow pain which lasted several minutes then resolved on its own. had left shoulder ache this morning at 5 AM which lasted about 5 minutes, denies any further aching since. Denies chest pain, shortness of breath, upper back pain, jaw pain, abdominal pain or any other complaint. I spoke with Dr. Bundy, [place] [phone], discussed ECG and agreed upon sending 1 troponin in the ED ECG - HR 74, NSR, no st or tw changes trop neg Stable for discharge Advised patient to follow-up with paddle dyeing machine operator Return precautions discussed Discharge - Discharge Information Problems reviewed: Yes Clinical Impression/Diagnosis: Shoulder pain, acute Qualifiers: Laterality: left Qualified Code(s): M25.512 - Pain in left shoulder Condition: Stable Disposition: HOME - Admission No - Follow up/Referral Referrals: José Miguel Gonsalves MD [Primary Care Provider] - - Patient Discharge Instructions Additional Instructions: Take acetaminophen 650 mg every 6 hours as needed Follow-up with your doctor and your paddle dyeing machine operator within 1 week Return to ED if chest pain, shortness of breath, jaw pain, back pain or any concerning symptoms - Post Discharge Activity
[2019-05-04] MEDS ORDERED: ACETAMINOPHEN 500 MG TABLET (FP) PO ONE (13:41)
[2019-05-04] MEDS ORDERED: ACETAMINOPHEN 500 MG TABLET (FP) ONE (13:43)
--- NOTE | 2019-05-05 14:08 | EKG ---
Test Reason : Blood Pressure : / mmHG Vent. Rate : 074 BPM Atrial Rate : 074 BPM P-R Int : 174 ms QRS Dur : 094 ms QT Int : 392 ms P-R-T Axes : 018 013 036 degrees QTc Int : 435 ms NORMAL SINUS RHYTHM NORMAL ECG WHEN COMPARED WITH ECG OF 09-JAN-2019 22:21, CRITERIA FOR INFERIOR INFARCT ARE NO LONGER PRESENT Confirmed by RENETTA WASHINGTON MD ([id number]) on 05/05/2019 2:08:21 PM Referred By: Confirmed By:RENETTA WASHINGTON MD
== END 2019-05-04 15:30 | disposition home or self-care (01) ==
LOC: JERFT 12:11
DX: M25.512 Pain in left shoulder (principal); I10 Essential (primary) hypertension; I48.91 Unspecified atrial fibrillation; Z79.01 Long term (current) use of anticoagulants; E78.00 Pure hypercholesterolemia, unspecified; F41.9 Anxiety disorder, unspecified; K21.9 Gastro-esophageal reflux disease without esophagitis; M12.9 Arthropathy, unspecified; Z88.0 Allergy status to penicillin
CPT/HCPCS: 36415; 84484; 93005; 93010; 99281-25

== ENCOUNTER 2020-01-11 08:37 | Emergency (ER) | payer OTHER ==
[2020-01-11 08:52] VITALS: TEMP 98.4; BMI 42.9
[2020-01-11] MEDS ORDERED: ALPRAZolam 0.25 MG TABLET PO STA (09:22)
--- NOTE | 2020-01-11 09:30 | PDOC ---
History of Present Illness - General Chief Complaint: Irregular Heart Beat Stated Complaint: SHAKING/NERVOUS Time Seen by Provider: 01/11/20 09:30 - History of Present Illness Initial Comments: 01/11/20 10:03 64 F with hx of A.fib on Xarelto, anxiety, HTN, obesiy, OA presented here for high heart rate. Patient woke up at 5: 30 and had a cup of coffee. Shortly after, she developed a panic attack: high heart rate with diaphoresis, nausea, and dizziness. SHe quickly took her xanex . However, it didn't help. Patient couldn't distinguish if this is due to her A. fib or anxiety related issue. Currently, she is resting comforably. She denied chest pain, heart palpitation, nausea, vomiting, abdominal pain, dysuria, headache, change in sensation or strength. Clothing Manager: Dr. Buck. PMHX: as in HPI PSHX: ex lap for cholecyestectomy Meds: home meds. Allergies: penicillin Tob: neg Etoh: neg Rec drugs: neg PCP: ROS GENERAL/CONSTITUTIONAL: No fever or chills. No weakness. HEAD, EYES, EARS, NOSE AND THROAT: No change in vision. No ear pain or discharge. No sore throat. CARDIOVASCULAR: No chest pain or shortness of breath RESPIRATORY: No cough, wheezing, or hemoptysis. GASTROINTESTINAL: No nausea, vomiting, diarrhea or constipation. GENITOURINARY: No dysuria, frequency, or change in urination. MUSCULOSKELETAL: No joint or muscle swelling or pain. No neck or back pain. SKIN: No rash NEUROLOGIC: No headache, vertigo, loss of consciousness, or change in strength/sensation. ENDOCRINE: No increased thirst. No abnormal weight change HEMATOLOGIC/LYMPHATIC: No anemia, easy bleeding, or history of blood clots. ALLERGIC/IMMUNOLOGIC: No hives or skin allergy. PE GENERAL: Awake, alert, and fully oriented, in no acute distress, obese. HEAD: No signs of trauma, normocephalic, atraumatic EYES: PERRLA, EOMI, sclera anicteric, conjunctiva clear ENT: Auricles normal inspection, hearing grossly normal, nares patent, or opharynx clear without exudates. Moist mucosa NECK: Normal ROM, supple, no lymphadenopathy, JVD, or masses LUNGS: No distress, speaks full sentences, clear to auscultation bilaterally HEART: Regular rate and rhythm, normal S1 and S2, no murmurs, rubs or gallops, peripheral pulses normal and equal bilaterally. ABDOMEN: Soft, nontender, normoactive bowel sounds. No guarding, no rebound. No masses EXTREMITIES : Normal inspection, Normal range of motion, no edema. No clubbing or cyanosis. NEUROLOGICAL: Cranial nerves II through XII grossly intact. Normal speech, no rmal gait, no focal sensorimotor deficits SKIN: Warm, Dry, normal turgor, no rashes or lesions noted Past History - Medical History Allergies/Adverse Reactions: Allergies Allergy/AdvReac Type Severity Reaction Status Date / Time Penicillins Allergy Intermediate Swelling Verified 01/11/20 08:42 Home Medications: Ambulatory Orders Alprazolam [Xanax] 0.5 mg PO DAILY 03/01/16 Diltiazem Cd [Cardizem Cd -] 120 mg PO DAILY #30 cap.cd.24h 11/21/17 Rivaroxaban [Xarelto -] 20 mg PO DAILY@1800 #30 tablet 11/21/17 COPD: No Diabetes: Yes GI Disorders: Yes (acid reflux) HTN: Yes Hypercholesterolemia: Yes Psychiatric Problems: Yes (ANXIETY) - Surgical History Cholecystectomy: Yes - Immunization History Immunization Up to Date: Yes - Psycho-Social/Smoking History Smoking Status: No Smoking History: Never smoked Have you smoked in the past 12 months: No Number of Cigarettes Smoked Daily: 0 - Substance Abuse Hx (Audit-C & DAST Scrn) How often the patient has a drink containing alcohol: Never Score: In Men: 4 or > Positive; In Women: 3 or > Positive: 0 Screen Result (Pos requires Nsg. Audit-10AR): Negative In the last yr the pt used illegal drug/Rx for NonMed reason: No Score: Yes response is considered Positive: 0 Screen Result (Positive result requires Nsg. DAST-10): Negative *Physical Exam - Vital Signs Last Vital Signs Temp Pulse Resp BP Pulse Ox 98.4 F 111 H 18 165/77 98 01/11/20 08:42 01/11/20 08:42 01/11/20 08:42 01/11/20 08:42 01/11/20 08:42 ED Treatment Course - LABORATORY CBC & Chemistry Diagram: 01/11/20 09:30 01/11/20 09:27 Medical Decision Making - Medical Decision Making 01/11/20 10:08 64 F with hx of A.fib on xarelto, HTN, Anxiety presented here for high heart rate/anxiety panic attack. -will do cardiac workup: CBC, CMP, trop, Coag, chest xray. 01/11/20 11:00 EKG showed vent rate 100, normal sinus rthym, QTc 446. 01/11/20 11:00 Blood work is unremarkable. Discharge - Discharge Information Problems reviewed: Yes Clinical Impression/Diagnosis: Panic attack Condition: Improved Disposition: HOME - Follow up/Referral Referrals: José Miguel Gonsalves MD [Primary Care Provider] - - Patient Discharge Instructions Patient Printed Discharge Instructions: DI for Panic Disorder Additional Instructions: You were seen in the ED for complaints of high heart rate, and anxiety. In the ED you were evaluated with blood work and imaging. Your results were negative. There does not appear to be an acute need for immediate hospitalization. Please take your psy meds as prescribed at home. You are advised to follow up with your Primary Care Physician and recreational assistant within 1 week. Return to the ED immediately if you experience heart palpitation, chest pain, irregular heart rhthym, sense of impending doom or new symptoms. - Post Discharge Activity
[2020-01-11] MEDS ORDERED: ALPRAZolam 0.25 MG TABLET ONE (09:42)
[2020-01-11 09:55] VITALS: BP 147/69
[2020-01-11 10:16] VITALS: PULSE 84
[2020-01-11 10:24] LABS: BASO % 0.9 % (0-2.0); EOS % 2.9 % (0-4.5); HEMOGLOBIN 14.1 GM/dL (10.7-15.3); LYMPH % 29.3 % (8-40); MCH 30.3 pg (25.7-33.7); MCHC 33.5 g/dl (32.0-36.0); MEAN CELL VOLUME 90.4 fl (80-96); MEAN PLT VOLUME 8.5 fl (7.5-11.1); MONO % 7.6 % (3.8-10.2); NEUT % 59.3 % (42.8-82.8); PLATELET COUNT 295 K/MM3 (134-434); RBC 4.64 M/mm3 (3.60-5.2); RDW 13.9 % (11.6-15.6); WHITE BLOOD COUNT 8.3 K/mm3 (4.0-10.0)
[2020-01-11 10:33] LABS: INR 1.5 (0.83-1.09); PROTHROMBIN TIME (PATIENT) 17.8 SEC (9.7-13.0)
[2020-01-11 10:35] LABS: ACTIVATED PTT 43.2 SECONDS (25.2-36.5)
[2020-01-11 10:55] LABS: ALBUMIN 3.4 g/dl (3.4-5.0); ALK PHOS 95 U/L (45-117); ANION GAP 6 MMOL/L (8-16); BILIRUBIN,TOTAL 0.3 mg/dL (0.2-1); BLOOD UREA NITROGEN 10.5 mg/dL (7-18); CALCIUM 8.9 mg/dL (8.5-10.1); CHLORIDE 108 mmol/L (98-107); CO2 26 mmol/L (21-32); CREATININE 0.7 mg/dL (0.55-1.3); GLUCOSE,RANDOM 147 mg/dL (74-106); POTASSIUM 4.3 mmol/L (3.5-5.1); SGOT/AST 19 U/L (15-37); SGPT/ALT 20 U/L (13-61); SODIUM 140 mmol/L (136-145); TOT PROT 7.7 g/dl (6.4-8.2)
[2020-01-11 10:59] LABS: N-TERMINAL BNP 96.6 pg/ml (5-125)
--- NOTE | 2020-01-11 11:12 | PDOC ---
Attending Attestation - Resident Resident Name: Doyle Womack - ED Attending Attestation I have performed the following: I have examined & evaluated the patient, The case was reviewed & discussed with the resident, I agree w/resident's findings & plan, Exceptions are as noted - HPI HPI: 01/11/20 11:10 64 F with h/o A.fib on Xarelto, anxiety, HTN, obesity, OA presenting with palpitations. Pt states that she felt like her afib was flaring up this morning, as she felt her heart racing and had palpitations. However, when she checked her pulse, it was only 100. Pt denies any CP/SOB. Denies lightheadedness/dizziness. Pt then took a xanax, thinking it could be her anxiety. Upon arrival to ED, pt states her symptoms have all resolved. Denies any complaints at this time. - Physicial Exam PE: 01/11/20 11:11 "GENERAL: Awake, alert, and fully oriented, in no acute distress. HEAD: No signs of trauma EYES: PERRLA, EOMI, sclera anicteric, conjunctiva clear ENT: Auricles normal inspection, hearing grossly normal, nares patent, oropharynx clear without exudates. Moist mucosa NECK: Nontender, no stepoffs, Normal ROM, supple, no lymphadenopathy, JVD, or masses LUNGS: Breath sounds equal, clear to auscultation bilaterally. No wheezes, and no crackles HEART: Regular rate and rhythm, normal S1 and S2, no murmurs, rubs or gallops ABDOMEN: Soft, nontender, normoactive bowel sounds. No guarding, no rebound. No masses EXTREMITIES: Normal range of motion, no edema. No clubbing or cyanosis. No cords, erythema, or tenderness NEUROLOGICAL: Cranial nerves II through XII intact. 5/5 strength and sensation in all extremities, Normal speech, normal gait, normal cerebellar function SKIN: Warm, Dry, normal turgor, no rashes or lesions noted. - Medical Decision Making 01/11/20 11:12 64 F with palpitations. EKG shows NSR. Vitals wnl. Will r/o ACS with single trop (onset of symptoms >4 hours ago) - Labs, trop 01/11/20 11:13 Labs wnl Pt is well appearing, with normal vitals. Clinically stable for DC at this time. I discussed the physical exam findings, ancillary test results and final diagnoses with the patient. I answered all of the patient's questions. The patient was satisfied with the care received and felt comfortable with the discharge plan and treatment plan. The patient agrees to follow up with the primary care physician within 24-72 hours. Discharge - Discharge Information Problems reviewed: Yes Clinical Impression/Diagnosis: Panic attack, Palpitations Condition: Improved Disposition: HOME - Follow up/Referral Referrals: José Miguel Gonsalves MD [Primary Care Provider] - - Patient Discharge Instructions Patient Printed Discharge Instructions: DI for Panic Disorder Additional Instructions: You were seen in the ED for complaints of high heart rate, and anxiety. In the ED you were evaluated with blood work and imaging. Your results were negative. There does not appear to be an acute need for immediate hospitalization. Please take your psy meds as prescribed at home. 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 Return to the ED immediately if you experience heart palpitation, chest pain, irregular heart rhthym, sense of impending doom or new symptoms. - Post Discharge Activity
--- NOTE | 2020-01-12 10:42 | EKG ---
Test Reason : Blood Pressure : / mmHG Vent. Rate : 100 BPM Atrial Rate : 100 BPM P-R Int : 184 ms QRS Dur : 094 ms QT Int : 346 ms P-R-T Axes : 019 022 031 degrees QTc Int : 446 ms NORMAL SINUS RHYTHM NORMAL ECG WHEN COMPARED WITH ECG OF 04-MAY-2019 13:11, NO SIGNIFICANT CHANGE WAS FOUND Confirmed by RENETTA WASHINGTON MD ([id number]) on 01/12/2020 10:41:55 AM Referred By: Confirmed By:RENETTA WASHINGTON MD
== END 2020-01-11 11:31 | disposition home or self-care (01) ==
LOC: JER 08:37
DX: F41.0 Panic disorder [episodic paroxysmal anxiety] (principal)
CPT/HCPCS: 36415; 71045-TC-FY; 80053; 82550; 82962; 83735; 83880; 84443; 84484; 85025; 85610; 85730; 93005; 93010; 99285-25

== ENCOUNTER 2020-06-03 19:30 | Inpatient (IN) | payer OTHER ==
[2020-06-03 20:19] VITALS: BMI 94.6
[2020-06-03 22:33] LABS: BASO % 0.9 % (0-2.0); EOS % 2.8 % (0-4.5); HEMATOCRIT 37.5 % (32.4-45.2); HEMOGLOBIN 12.4 GM/dL (10.7-15.3); LYMPH % 23.5 % (8-40); MCH 29.8 pg (25.7-33.7); MEAN CELL VOLUME 90.3 fl (80-96); MEAN PLT VOLUME 8.9 fl (7.5-11.1); MONO % 11.7 % (3.8-10.2); NEUT % 61.1 % (42.8-82.8); PLATELET COUNT 260 K/MM3 (134-434); RBC 4.16 M/mm3 (3.60-5.2); RDW 14.8 % (11.6-15.6); WHITE BLOOD COUNT 6.6 K/mm3 (4.0-10.0)
[2020-06-03] MEDS ORDERED: ASPIRIN 81 MG CHEWABLE TABLETS PO ONE (22:54)
[2020-06-03] MEDS ORDERED: ACETAMINOPHEN 1000 MG/100 ML VIAL (NON FORMULARY) IVPB ONE (22:54)
[2020-06-03] MEDS ORDERED: ASPIRIN 81 MG CHEWABLE TABLETS ONE (22:57)
[2020-06-03 22:59] LABS: CHLORIDE 109 mmol/L (98-107); POTASSIUM 4.1 mmol/L (3.5-5.1); SODIUM 142 mmol/L (136-145)
[2020-06-03 23:01] LABS: ALBUMIN 3.4 g/dl (3.4-5.0); ANION GAP 9 MMOL/L (8-16); BLOOD UREA NITROGEN 13.1 mg/dL (7-18); CALCIUM 8.9 mg/dL (8.5-10.1); CO2 24 mmol/L (21-32); LIPASE 95 U/L (73-393)
[2020-06-03 23:02] LABS: GLUCOSE,RANDOM 191 mg/dL (74-106)
[2020-06-03 23:04] LABS: CREATININE 0.8 mg/dL (0.55-1.3); SGOT/AST 20 U/L (15-37); SGPT/ALT 24 U/L (13-61)
[2020-06-03 23:06] LABS: BILIRUBIN,TOTAL 0.3 mg/dL (0.2-1); TOT PROT 7.2 g/dl (6.4-8.2)
[2020-06-03 23:07] LABS: ALK PHOS 91 U/L (45-117)
[2020-06-03 23:14] LABS: INR 2.08 (0.83-1.09)
[2020-06-03] MEDS ORDERED: ASPIRIN COATED 81 MG TABLET.EC ONE (23:28)
[2020-06-04 08:11] LABS: BASO % 0.8 % (0-2.0); EOS % 3.1 % (0-4.5); HEMATOCRIT 37.7 % (32.4-45.2); HEMOGLOBIN 12.8 GM/dL (10.7-15.3); LYMPH % 36.2 % (8-40); MCH 30.2 pg (25.7-33.7); MEAN CELL VOLUME 88.7 fl (80-96); MEAN PLT VOLUME 8.5 fl (7.5-11.1); MONO % 13.7 % (3.8-10.2); NEUT % 46.2 % (42.8-82.8); PLATELET COUNT 245 K/MM3 (134-434); RBC 4.25 M/mm3 (3.60-5.2); RDW 14.4 % (11.6-15.6)
[2020-06-04] MEDS ORDERED: FAMOTIDINE 10 MG TABLET ONE (08:35)
[2020-06-04] MEDS ORDERED: ALPRAZolam 0.25 MG TABLET ONE (08:36)
[2020-06-04] MEDS ORDERED: dilTIAZem HCL 60 MG TABLET ONE (08:36)
[2020-06-04 08:58] LABS: CHOLESTEROL 201 mg/dL (50-200)
[2020-06-04 08:59] LABS: LDL CHOLESTEROL (ONLY SJRH) 126 mg/dL (5-100); TRIGLYCERIDES 87 mg/dL (0-150)
[2020-06-04 09:01] LABS: HDL CHOLESTEROL 53 mg/dL (40-60)
[2020-06-04] MEDS ORDERED: ALPRAZolam 0.25 MG TABLET PO SCH (10:00)
[2020-06-04] MEDS ORDERED: ENOXAPARIN NA (PORCINE) 40 MG/0.4 ML DISP.SYRIN SQ SCH (10:00)
[2020-06-04] MEDS ORDERED: FAMOTIDINE 10 MG TABLET PO SCH (10:00)
[2020-06-04] MEDS: LISINOPRIL 5 MG TABLET PO SCH (10:07)
[2020-06-04 11:59] LABS: LDH 162 U/L (84-246)
[2020-06-04 12:56] LABS: CHLORIDE 110 mmol/L (98-107); POTASSIUM 4.2 mmol/L (3.5-5.1); SODIUM 143 mmol/L (136-145)
[2020-06-04 13:00] LABS: CALCIUM 9.1 mg/dL (8.5-10.1)
[2020-06-04 13:01] LABS: ALBUMIN 3.4 g/dl (3.4-5.0); CO2 23 mmol/L (21-32); GLUCOSE,RANDOM 133 mg/dL (74-106)
[2020-06-04 13:03] LABS: SGOT/AST 12 U/L (15-37); SGPT/ALT 23 U/L (13-61)
[2020-06-04 13:04] LABS: CREATININE 0.7 mg/dL (0.55-1.3); TOT PROT 6.8 g/dl (6.4-8.2)
[2020-06-04 13:05] LABS: ALK PHOS 75 U/L (45-117); BILIRUBIN,TOTAL 0.4 mg/dL (0.2-1)
[2020-06-04 13:23] LABS: PHOSPHOROUS 3.6 mg/dL (2.5-4.9)
[2020-06-04] MEDS: INSULIN SLIDING SCALE (NOVOLOG) 1 VIAL SQ SCH ×2 (17:56→21:21)
[2020-06-04] MEDS ORDERED: RIVAROXABAN 20 MG TABLET PO SCH (18:00)
[2020-06-04] MEDS ORDERED: PT OWN MED DRAWER 7, Y5N ONE (18:13)
[2020-06-04] MEDS ORDERED: ATORVASTATIN CA 20 MG TABLET (FP) ONE (21:07)
[2020-06-04] MEDS ORDERED: ATORVASTATIN CA 20 MG TABLET (FP) PO SCH (22:00)
[2020-06-05] MEDS ORDERED: FAMOTIDINE 10 MG TABLET PO SCH (00:07)
[2020-06-05] MEDS ORDERED: ALPRAZolam 0.25 MG TABLET PO PRN (06:12)
[2020-06-05] MEDS: INSULIN SLIDING SCALE (NOVOLOG) 1 VIAL SQ SCH ×2 (07:00→11:24)
[2020-06-05 07:53] LABS: BASO % 0.6 % (0-2.0); EOS % 2.4 % (0-4.5); HEMOGLOBIN 12.5 GM/dL (10.7-15.3); MCH 30.2 pg (25.7-33.7); MCHC 33.7 g/dl (32.0-36.0); MEAN CELL VOLUME 89.5 fl (80-96); MEAN PLT VOLUME 8.8 fl (7.5-11.1); MONO % 15.1 % (3.8-10.2); NEUT % 40.9 % (42.8-82.8); PLATELET COUNT 252 K/MM3 (134-434); RBC 4.14 M/mm3 (3.60-5.2); RDW 14.7 % (11.6-15.6); WHITE BLOOD COUNT 5.4 K/mm3 (4.0-10.0)
[2020-06-05 08:03] LABS: CALCIUM 8.7 mg/dL (8.5-10.1)
[2020-06-05 08:04] LABS: ALBUMIN 3.4 g/dl (3.4-5.0); MAGNESIUM 1.8 mg/dL (1.8-2.4)
[2020-06-05 08:07] LABS: CREATININE 0.8 mg/dL (0.55-1.3); PHOSPHOROUS 3.4 mg/dL (2.5-4.9)
[2020-06-05 08:08] LABS: BILIRUBIN,TOTAL 0.6 mg/dL (0.2-1)
[2020-06-05] MEDS ORDERED: CHOLECALCIFEROL (VIT D3) 1,000 UNIT (25 MCG) TABLET PO SCH (10:00)
[2020-06-05] MEDS ORDERED: ZINC SULFATE 220 MG CAPSULE (FP) PO SCH (10:00)
[2020-06-05] MEDS ORDERED: ASCORBIC ACID 500 MG TABLET (FP) PO SCH (10:00)
[2020-06-05] MEDS ORDERED: OSELTAMIVIR PHOSPHATE 75 MG CAPSULE PO SCH (10:00)
[2020-06-05] MEDS ORDERED: LISINOPRIL 5 MG TABLET ONE (10:24)
[2020-06-05] MEDS ORDERED: ASCORBIC ACID 500 MG TABLET (FP) ONE ×2 (10:24→10:43)
[2020-06-05] MEDS ORDERED: ZINC SULFATE 220 MG CAPSULE (FP) ONE (10:24)
[2020-06-05] MEDS ORDERED: FAMOTIDINE 20 MG TABLET ONE (10:24)
[2020-06-05] MEDS ORDERED: CHOLECALCIFEROL (VIT D3) 1,000 UNIT (25 MCG) TABLET ONE (10:25)
[2020-06-05] MEDS: LISINOPRIL 5 MG TABLET PO SCH (10:49)
[2020-06-05 10:56] VITALS: PULSE 95; TEMP 98.4
[2020-06-05] MEDS ORDERED: LISINOPRIL 5 MG TABLET PO SCH (11:25)
[2020-06-05] MEDS ORDERED: LISINOPRIL 5 MG TABLET PO ONE (11:26)
[2020-06-05 11:44] VITALS: BP 157/80
== END 2020-06-05 12:00 | disposition home or self-care (01) | DRG 865 ==
LOC: JER 19:30 → JERBED 23:28 → OBSVTOIN 06-04 01:55
PROVIDERS: ADMIT Hospitalist
DX: J10.89 Influenza due to other identified influenza virus with other manifestations (principal); U07.1 COVID-19; Z68.45 Body mass index [BMI] 70 or greater, adult; I50.30 Unspecified diastolic (congestive) heart failure; I16.0 Hypertensive urgency; I48.91 Unspecified atrial fibrillation; K21.9 Gastro-esophageal reflux disease without esophagitis; F41.9 Anxiety disorder, unspecified; N64.4 Mastodynia; E11.65 Type 2 diabetes mellitus with hyperglycemia; E78.5 Hyperlipidemia, unspecified; I11.0 Hypertensive heart disease with heart failure; E66.01 Morbid (severe) obesity due to excess calories; R00.0 Tachycardia, unspecified
CPT/HCPCS: 36415; 71045-TC-FY; 80053; 80061; 82550; 82728; 82962; 83036; 83615; 83690; 83721; 83735; 84100; 84443; 84484; 85025; 85379; 85610; 85730; 86140; 86769; 87804; 93005; 93010; 93880-TC; 99285-25; C9803; G0378; U0003

== ENCOUNTER 2020-10-31 19:03 | Emergency (ER) | payer MEDICARE, OTHER ==
[2020-10-31 19:36] VITALS: TEMP 98.4; BMI 42.9
[2020-10-31] MEDS ORDERED: ALPRAZolam 1 MG TABLET PO PRN (20:37)
[2020-10-31] MEDS ORDERED: ALPRAZolam 0.25 MG TABLET ONE (20:44)
[2020-10-31 21:34] LABS: BASO % 0.5 % (0-2.0); EOS % 0.1 % (0-4.5); HEMATOCRIT 39.9 % (32.4-45.2); HEMOGLOBIN 13.5 GM/dL (10.7-15.3); LYMPH % 12.2 % (8-40); MCH 30.2 pg (25.7-33.7); MCHC 33.9 g/dl (32.0-36.0); MEAN CELL VOLUME 89.2 fl (80-96); MEAN PLT VOLUME 8.6 fl (7.5-11.1); MONO % 1.9 % (3.8-10.2); NEUT % 85.3 % (42.8-82.8); PLATELET COUNT 307 10^3/uL (134-434); RBC 4.48 M/mm3 (3.60-5.2); RDW 13.9 % (11.6-15.6); WHITE BLOOD COUNT 9.6 K/mm3 (4.0-10.0)
[2020-10-31 22:06] LABS: CHLORIDE 104 mmol/L (98-107); SODIUM 136 mmol/L (136-145)
[2020-10-31 22:10] LABS: ALBUMIN 3.5 g/dl (3.4-5.0); ANION GAP 11 MMOL/L (8-16); CALCIUM 9.5 mg/dL (8.5-10.1); CO2 21 mmol/L (21-32)
[2020-10-31 22:11] LABS: BLOOD UREA NITROGEN 14.9 mg/dL (7-18); GLUCOSE,RANDOM 257 mg/dL (74-106)
[2020-10-31 22:14] LABS: CREATININE 0.9 mg/dL (0.55-1.3); SGOT/AST 22 U/L (15-37); SGPT/ALT 22 U/L (13-61)
[2020-10-31 22:15] LABS: BILIRUBIN,TOTAL 0.4 mg/dL (0.2-1); TOT PROT 8.1 g/dl (6.4-8.2)
[2020-10-31 22:16] LABS: ALK PHOS 105 U/L (45-117)
[2020-10-31 23:09] VITALS: BP 154/79; PULSE 103
== END 2020-11-01 00:29 | disposition home or self-care (01) ==
LOC: JER 19:03
DX: R00.2 Palpitations (principal)
CPT/HCPCS: 36415; 71045-TC-FY; 80053; 82550; 83735; 84443; 84484; 85025; 93005; 93010; 99284-25

== ENCOUNTER 2021-10-02 11:47 | Observation (INO) | payer OTHER ==
[2021-10-02] MEDS ORDERED: ASPIRIN 81 MG CHEWABLE TABLETS PO ONE (12:53)
[2021-10-02] MEDS ORDERED: ASPIRIN 81 MG CHEWABLE TABLETS ONE (12:58)
[2021-10-02 13:59] LABS: BASO % 0.6 % (0-2.0); EOS % 4.1 % (0-4.5); HEMATOCRIT 38.6 % (32.4-45.2); HEMOGLOBIN 12.9 GM/dL (10.7-15.3); LYMPH % 32.3 % (8-40); MCH 29.5 pg (25.7-33.7); MCHC 33.3 g/dl (32.0-36.0); MEAN CELL VOLUME 88.8 fl (80-96); MEAN PLT VOLUME 8.5 fl (7.5-11.1); MONO % 7.7 % (3.8-10.2); NEUT % 55.3 % (42.8-82.8); PLATELET COUNT 316 10^3/uL (134-434); RBC 4.35 M/mm3 (3.60-5.2); RDW 14.4 % (11.6-15.6)
[2021-10-02 14:11] LABS: URINE APPEARANCE CLEAR; URINE BILIRUBIN NEGATIVE (NEGATIVE); URINE COLOR YELLOW; URINE GLUCOSE (UA) NEGATIVE (NEGATIVE); URINE KETONE NEGATIVE (NEGATIVE); URINE LEUK ESTERASE NEGATIVE (NEGATIVE); URINE NITRITE NEGATIVE (NEGATIVE); URINE PROTEIN NEGATIVE (NEGATIVE)
[2021-10-02 14:23] LABS: CALCIUM 9.6 mg/dL (8.5-10.1)
[2021-10-02 14:24] LABS: ALBUMIN 3.5 g/dl (3.4-5.0); BLOOD UREA NITROGEN 10.3 mg/dL (7-18)
[2021-10-02 14:27] LABS: CREATININE 0.7 mg/dL (0.55-1.3)
[2021-10-02 14:28] LABS: TOT PROT 7.4 g/dl (6.4-8.2)
[2021-10-02 14:29] LABS: BILIRUBIN,TOTAL 0.5 mg/dL (0.2-1)
[2021-10-02 14:36] LABS: INR 1.47 (0.83-1.09)
[2021-10-02 14:38] LABS: ACTIVATED PTT 35.8 SECONDS (25.2-36.5)
[2021-10-02] MEDS: RIVAROXABAN 15 MG TABLET PO SCH (19:14)
[2021-10-02] MEDS ORDERED: ATORVASTATIN CA 40 MG TABLET (FP) ONE (20:50)
[2021-10-02] MEDS: ATORVASTATIN CA 40 MG TABLET (FP) PO SCH (21:03)
[2021-10-03 00:24] VITALS: BMI 44.7
[2021-10-03] MEDS ORDERED: PATIENT'S OWN MEDICATION (NON-FORMULARY) (Alprazolam [Xanax] 0.5 MG Tablet) PO PRN (08:09)
[2021-10-03] MEDS ORDERED: ALPRAZolam 0.25 MG TABLET PO PRN (08:21)
[2021-10-03] MEDS ORDERED: LISINOPRIL 10 MG TABLET PO SCH (10:00)
[2021-10-03] MEDS ORDERED: REGADENOSON 0.4 MG/5 ML PRE-FILLED SYRINGE IVPUSH ONE (10:00)
[2021-10-03] MEDS: INSULIN SLIDING SCALE (NOVOLOG) 1 VIAL SQ SCH (17:07)
[2021-10-03] MEDS: RIVAROXABAN 15 MG TABLET PO SCH (17:08)
[2021-10-03] MEDS: ALPRAZolam 0.25 MG TABLET PO PRN (18:12)
[2021-10-03 18:29] LABS: CALCIUM 9.4 mg/dL (8.5-10.1)
[2021-10-03 18:31] LABS: BLOOD UREA NITROGEN 11.7 mg/dL (7-18)
[2021-10-03 18:34] LABS: CREATININE 0.8 mg/dL (0.55-1.3)
[2021-10-03] MEDS: ATORVASTATIN CA 40 MG TABLET (FP) PO SCH ×2 (22:34→22:35)
[2021-10-04] MEDS: INSULIN SLIDING SCALE (NOVOLOG) 1 VIAL SQ SCH ×2 (06:11→11:36)
[2021-10-04 08:11] LABS: HEMATOCRIT 39.2 % (32.4-45.2); HEMOGLOBIN 13.1 GM/dL (10.7-15.3); MCH 30.1 pg (25.7-33.7); MCHC 33.5 g/dl (32.0-36.0); MEAN CELL VOLUME 89.9 fl (80-96); PLATELET COUNT 272 10^3/uL (134-434); RBC 4.36 M/mm3 (3.60-5.2); RDW 14.9 % (11.6-15.6); WHITE BLOOD COUNT 6.8 K/mm3 (4.0-10.0)
[2021-10-04 08:32] LABS: BLOOD UREA NITROGEN 13.5 mg/dL (7-18); CALCIUM 9.3 mg/dL (8.5-10.1)
[2021-10-04 08:33] LABS: ALBUMIN 3.4 g/dl (3.4-5.0); MAGNESIUM 2.1 mg/dL (1.8-2.4)
[2021-10-04 08:35] LABS: CREATININE 0.7 mg/dL (0.55-1.3); PHOSPHOROUS 3.9 mg/dL (2.5-4.9)
[2021-10-04] MEDS: ALPRAZolam 0.25 MG TABLET PO PRN (08:35)
[2021-10-04 08:37] LABS: BILIRUBIN,TOTAL 0.6 mg/dL (0.2-1)
[2021-10-04] MEDS ORDERED: ASPIRIN 81 MG CHEWABLE TABLETS PO SCH (10:00)
[2021-10-04] MEDS ORDERED: PANTOPRAZOLE 40 MG TABLET PO SCH (10:00)
[2021-10-04] MEDS ORDERED: LISINOPRIL 5 MG TABLET PO SCH (10:00)
[2021-10-04] MEDS ORDERED: RIVAROXABAN 20 MG TABLET PO SCH (13:20)
[2021-10-04] MEDS ORDERED: CILOSTAZOL 50 MG TABLET PO SCH (13:30)
[2021-10-04 14:23] VITALS: BP 119/64; PULSE 85; TEMP 98.3
== END 2021-10-04 15:16 | disposition home or self-care (01) ==
LOC: SUPCPDRO 11:47 → JER 11:47 → JERBED 14:44 → INTOOBSV 14:44 → UNDOADMOB 14:44 → OBSVTOIN 14:44 → JERBED 18:34 → J4S 10-03 00:01
PROVIDERS: ADMIT Internal Medicine; ATTEND Internal Medicine
DX: I48.0 Paroxysmal atrial fibrillation (principal); I11.9 Hypertensive heart disease without heart failure; I65.29 Occlusion and stenosis of unspecified carotid artery; E66.01 Morbid (severe) obesity due to excess calories; Z68.41 Body mass index [BMI] 40.0-44.9, adult; G47.33 Obstructive sleep apnea (adult) (pediatric); F41.9 Anxiety disorder, unspecified; E78.5 Hyperlipidemia, unspecified; E11.9 Type 2 diabetes mellitus without complications; K21.9 Gastro-esophageal reflux disease without esophagitis; Z79.01 Long term (current) use of anticoagulants; Z29.8 Encounter for other specified prophylactic measures; Z88.0 Allergy status to penicillin
CPT/HCPCS: 0241U-QW; 36415; 71045-TC-FY; 80048; 80053; 80061; 81003; 82962; 83036; 83735; 84100; 84484; 85025; 85027; 85610; 85730; 87086; 93005; 93010; 93308; 99285-25; G0378

== ENCOUNTER 2022-01-15 00:25 | Observation (INO) | payer OTHER ==
[2022-01-15 00:40] VITALS: BMI 41.1
[2022-01-15] MEDS ORDERED: dilTIAZem HCL 50 MG/10 ML - 10 ML VIAL IVPUSH ONE (01:18)
[2022-01-15 01:57] LABS: BASO % 0.5 % (0-2.0); EOS % 3.9 % (0-4.5); HEMATOCRIT 40.3 % (32.4-45.2); HEMOGLOBIN 13.4 GM/dL (10.7-15.3); LYMPH % 23.9 % (8-40); MCH 30.3 pg (25.7-33.7); MCHC 33.3 g/dl (32.0-36.0); MEAN PLT VOLUME 8.1 fl (7.5-11.1); MONO % 8.8 % (3.8-10.2); NEUT % 62.9 % (42.8-82.8); PLATELET COUNT 316 10^3/uL (134-434); RBC 4.43 M/mm3 (3.60-5.2); RDW 14.3 % (11.6-15.6)
[2022-01-15 02:04] LABS: INR 2.14 (0.83-1.09); PROTHROMBIN TIME (PATIENT) 24.8 SEC (9.7-13.0)
[2022-01-15 02:07] LABS: ACTIVATED PTT 48.1 SECONDS (25.2-36.5)
[2022-01-15] MEDS ORDERED: dilTIAZem HCL 125 MG/25 ML - 25 ML VIAL ONE (02:15)
[2022-01-15] MEDS ORDERED: dilTIAZem HCL 30 MG TABLET PO ONE (02:38)
[2022-01-15] MEDS ORDERED: dilTIAZem HCL 30 MG TABLET ONE ×2 (02:44→06:29)
[2022-01-15 03:08] LABS: ALBUMIN 3.3 g/dl (3.4-5.0); BILIRUBIN,TOTAL 0.4 mg/dL (0.2-1); BLOOD UREA NITROGEN 13.9 mg/dL (7-18); CALCIUM 9.4 mg/dL (8.5-10.1); CREATININE 1.1 mg/dL (0.55-1.3); TOT PROT 7.4 g/dl (6.4-8.2)
[2022-01-15] MEDS ORDERED: METHOCARBAMOL 500 MG TABLET PO ONE (03:12)
[2022-01-15] MEDS ORDERED: METHOCARBAMOL 500 MG TABLET ONE (03:20)
[2022-01-15] MEDS ORDERED: dilTIAZem HCL 30 MG TABLET PO SCH (06:00)
[2022-01-15] MEDS ORDERED: LISINOPRIL 5 MG TABLET PO ONE (06:00)
[2022-01-15] MEDS ORDERED: PATIENT'S OWN MEDICATION (NON-FORMULARY) (Alprazolam [Xanax] 0.5 MG Tablet) PO PRN (06:02)
[2022-01-15] MEDS ORDERED: LISINOPRIL 5 MG TABLET ONE ×2 (06:29→10:43)
[2022-01-15] MEDS ORDERED: metFORMIN HCL 500 MG TABLET (FP) ONE (06:36)
[2022-01-15] MEDS ORDERED: metFORMIN HCL 500 MG TABLET (FP) PO SCH (07:00)
[2022-01-15] MEDS ORDERED: ALPRAZolam 0.25 MG TABLET PO PRN (09:33)
[2022-01-15] MEDS ORDERED: PATIENT'S OWN MEDICATION (NON-FORMULARY) (Omeprazole Magnesium [Prilosec Otc] 20 MG Tablet PO SCH (10:00)
[2022-01-15] MEDS ORDERED: PATIENT'S OWN MEDICATION (NON-FORMULARY) (Vortioxetine Hydrobromide [Trintellix] 5 MG Tabl PO SCH (10:00)
[2022-01-15] MEDS ORDERED: LISINOPRIL 5 MG TABLET PO SCH (10:00)
[2022-01-15] MEDS ORDERED: ALPRAZolam 0.25 MG TABLET PO SCH (10:00)
[2022-01-15] MEDS ORDERED: PANTOPRAZOLE 40 MG TABLET PO SCH (10:00)
[2022-01-15] MEDS ORDERED: PANTOPRAZOLE 40 MG TABLET PO ONE (10:42)
[2022-01-15 12:11] VITALS: BP 116/50; PULSE 73; RESP 19; TEMP 97.5
[2022-01-15] MEDS ORDERED: RIVAROXABAN 20 MG TABLET PO SCH ×2 (18:00→22:00)
== END 2022-01-15 12:15 | disposition home or self-care (01) ==
LOC: JER 00:25 → JERBED 02:55
PROVIDERS: ADMIT Internal Medicine; ATTEND Internal Medicine
PROC: 3E033GC Introduction of Other Therapeutic Substance into Peripheral Vein, Percutaneous Approach (ICD-10-PCS; principal; 2022-01-15)
DX: I48.91 Unspecified atrial fibrillation (principal); Z79.01 Long term (current) use of anticoagulants; F41.9 Anxiety disorder, unspecified; M19.90 Unspecified osteoarthritis, unspecified site; K21.9 Gastro-esophageal reflux disease without esophagitis; F41.8 Other specified anxiety disorders; F43.10 Post-traumatic stress disorder, unspecified; R00.0 Tachycardia, unspecified; Z88.0 Allergy status to penicillin; Z88.5 Allergy status to narcotic agent
CPT/HCPCS: 36415; 71046-TC-FY; 80053; 80061; 82962; 83036; 84443; 84484; 85025; 85610; 85730; 93005; 93010; 93306-TC; 96374; 99285-25; C9803-CS; G0378; U0003; U0005

== ENCOUNTER 2023-04-11 19:31 | Emergency (ER) | payer OTHER ==
[2023-04-11 19:40] VITALS: RESP 16; BMI 42.9
[2023-04-11 21:07] LABS: BASO % 0.6 % (0-2.0); EOS % 1.4 % (0-4.5); HEMATOCRIT 41.9 % (32.4-45.2); LYMPH % 16.7 % (8-40); MCH 29.9 pg (25.7-33.7); MCHC 33.4 g/dl (32.0-36.0); MEAN CELL VOLUME 89.5 fl (80-96); MEAN PLT VOLUME 7.9 fl (7.5-11.1); MONO % 6.2 % (3.8-10.2); NEUT % 75.1 % (42.8-82.8); PLATELET COUNT 396 10^3/uL (134-434); RBC 4.69 M/mm3 (3.60-5.2); RDW 14.9 % (11.6-15.6)
[2023-04-11 22:48] LABS: ALBUMIN 3.5 g/dl (3.4-5.0); BILIRUBIN,TOTAL 0.3 mg/dL (0.2-1); BLOOD UREA NITROGEN 12.6 mg/dL (7-18); CALCIUM 9.7 mg/dL (8.5-10.1); MAGNESIUM 1.8 mg/dL (1.8-2.4); N-TERMINAL BNP 110.4 pg/ml (5-125); POTASSIUM 4.1 mmol/L (3.5-5.1); TOT PROT 8.1 g/dl (6.4-8.2)
[2023-04-12 00:33] VITALS: BP 134/80; PULSE 99; TEMP 98
== END 2023-04-12 00:34 | disposition home or self-care (01) ==
LOC: JER 19:31
DX: R00.0 Tachycardia, unspecified (principal); R00.2 Palpitations; F41.9 Anxiety disorder, unspecified
CPT/HCPCS: 36415; 71045-TC-FY; 80053; 83735; 83880; 84443; 84484; 85025; 87651; 93005; 93010; 99285-25

== ENCOUNTER 2023-06-01 04:12 | Day surgery (SDC) | payer OTHER ==
[2023-05-26 13:16] VITALS: BMI 42.9
[2023-06-01 09:00] VITALS: BP 138/78; PULSE 102; RESP 20; TEMP 97.8
[2023-06-01] MEDS ORDERED: LIDOCAINE HCL/PF 1% SDV 5ML VIAL ONE (09:12)
[2023-06-01] MEDS ORDERED: LIDOCAINE HCL/PF 2% SDV 5ML VIAL ONE (09:12)
[2023-06-01] MEDS: LIDOCAINE 1% P/F 10 MG/ML VIAL INF ONE (09:46)
[2023-06-01] MEDS: LIDOCAINE HCL 2% (50ML VIAL) INF ONE (09:47)
[2023-06-01] MEDS ORDERED: ACETAMINOPHEN 500 MG TABLET (FP) PO PRN (11:41)
== END 2023-06-01 10:35 | disposition home or self-care (01) ==
LOC: JASU-SURG 04:12
PROVIDERS: ATTEND Pain Medicine Pain Medicine
PROC: 015D3ZZ Destruction of Femoral Nerve, Percutaneous Approach (ICD-10-PCS; principal; 2023-06-01 09:45)
DX: M25.561 Pain in right knee (principal)

== ENCOUNTER 2023-09-05 09:36 | Observation (INO) | payer OTHER ==
[2023-09-05 12:32] LABS: BASO % 0.7 % (0-2.0); EOS % 2.6 % (0-4.5); HEMATOCRIT 38.8 % (32.4-45.2); HEMOGLOBIN 12.9 GM/dL (10.7-15.3); LYMPH % 22.8 % (8-40); MCH 29.6 pg (25.7-33.7); MCHC 33.3 g/dl (32.0-36.0); MEAN PLT VOLUME 8.1 fl (7.5-11.1); NEUT % 67.9 % (42.8-82.8); PLATELET COUNT 284 10^3/uL (134-434); RBC 4.35 M/mm3 (3.60-5.2); RDW 15.6 % (11.6-15.6); WHITE BLOOD COUNT 7.6 K/mm3 (4.0-10.0)
[2023-09-05 12:41] LABS: INR 1.84 (0.83-1.09); PROTHROMBIN TIME (PATIENT) 20.4 SEC (9.7-13.0)
[2023-09-05 12:51] LABS: CALCIUM 8.5 mg/dL (8.5-10.1)
[2023-09-05 12:52] LABS: BLOOD UREA NITROGEN 8.2 mg/dL (7-18); MAGNESIUM 1.5 mg/dL (1.8-2.4)
[2023-09-05 12:55] LABS: CREATININE 0.7 mg/dL (0.55-1.3)
[2023-09-05 12:56] LABS: BILIRUBIN,TOTAL 0.6 mg/dL (0.2-1); TOT PROT 6.4 g/dl (6.4-8.2)
[2023-09-05 15:11] LABS: ERYTHROCYTE SEDIMENTATION RATE 44 mm/hr (0-30)
[2023-09-05] MEDS ORDERED: PATIENT'S OWN MEDICATION (NON-FORMULARY) (Alprazolam [Xanax] 0.5 MG Tablet) PO PRN (17:41)
[2023-09-05] MEDS ORDERED: MAGNESIUM SULFATE IN WATER 2 GM/50 ML IVPB IVPB ONE (18:14)
[2023-09-05] MEDS: MAGNESIUM SULFATE IN WATER 2 GM/50 ML IVPB IVPB ONE (18:40)
[2023-09-05] MEDS ORDERED: ALPRAZolam 0.25 MG TABLET ONE (19:14)
[2023-09-05] MEDS: ALPRAZolam 0.25 MG TABLET PO PRN (19:26)
[2023-09-05] MEDS: RIVAROXABAN 20 MG TABLET PO SCH (22:09)
[2023-09-05 23:19] VITALS: BMI 43.8
[2023-09-06] MEDS: PANTOPRAZOLE 40 MG TABLET PO SCH (09:14)
[2023-09-06] MEDS: LIDOCAINE 5% TOPICAL PATCH TP SCH (09:14)
[2023-09-06] MEDS: LISINOPRIL 5 MG TABLET PO SCH (09:15)
[2023-09-06] MEDS ORDERED: PATIENT'S OWN MEDICATION (NON-FORMULARY) (Omeprazole Magnesium [Prilosec Otc] 20 MG Tablet PO SCH (10:00)
[2023-09-06] MEDS: ACETAMINOPHEN 500 MG TABLET (FP) PO PRN (22:05)
[2023-09-06] MEDS: LIDOCAINE PATCH REMOVAL MC SCH (22:05)
[2023-09-07 08:12] LABS: POTASSIUM 3.7 mmol/L (3.5-5.1)
[2023-09-07 08:14] LABS: BLOOD UREA NITROGEN 11.7 mg/dL (7-18); MAGNESIUM 1.8 mg/dL (1.8-2.4)
[2023-09-07 08:17] LABS: CREATININE 0.7 mg/dL (0.55-1.3)
[2023-09-07] MEDS: LIDOCAINE 5% TOPICAL PATCH TP SCH (14:02)
[2023-09-07] MEDS: NAPROXEN 500 MG TABLET PO SCH (17:30)
[2023-09-07] MEDS: ACETAMINOPHEN 325 MG TABLET (FP) PO SCH (18:48)
[2023-09-07] MEDS: RIVAROXABAN 20 MG TABLET PO SCH (21:41)
[2023-09-07 22:56] VITALS: RESP 18
[2023-09-07] MEDS: LIDOCAINE PATCH REMOVAL MC SCH (22:58)
[2023-09-08 18:44] VITALS: BP 105/64; PULSE 77; TEMP 97.9
== END 2023-09-08 20:59 | disposition home or self-care (01) ==
LOC: JER 09:36 → JERBED 17:04 → J4S 20:47
PROVIDERS: ADMIT Internal Medicine; ATTEND Student in an Organized Health Care Education/Training Program
PROC: 3E033GC Introduction of Other Therapeutic Substance into Peripheral Vein, Percutaneous Approach (ICD-10-PCS; principal; 2023-09-05)
DX: H53.8 Other visual disturbances (principal); I48.0 Paroxysmal atrial fibrillation; I11.0 Hypertensive heart disease with heart failure; I50.30 Unspecified diastolic (congestive) heart failure; E11.9 Type 2 diabetes mellitus without complications; E78.5 Hyperlipidemia, unspecified; F41.9 Anxiety disorder, unspecified; K21.9 Gastro-esophageal reflux disease without esophagitis; M17.0 Bilateral primary osteoarthritis of knee; E66.9 Obesity, unspecified; Z68.41 Body mass index [BMI] 40.0-44.9, adult; R00.2 Palpitations; R00.0 Tachycardia, unspecified; M25.562 Pain in left knee; M25.561 Pain in right knee; M25.511 Pain in right shoulder; Z79.01 Long term (current) use of anticoagulants; Z88.5 Allergy status to narcotic agent; Z88.0 Allergy status to penicillin; Z91.041 Radiographic dye allergy status
CPT/HCPCS: 36415; 70450-TC; 73030-TC-RT-FY; 73070-TC-RT-FY; 73560-TC-LT-FY; 73560-TC-RT-FY; 80048; 80053; 82962; 83735; 85025; 85610; 85651; 86140; 93005; 93010; 93880-TC; 96365; 97116-GP; 97161-GP; 99285-25; G0378